=== PATIENT | female | born 1950 | race Caucasian/White ===

== ENCOUNTER 2019-03-26 11:55 | Emergency (ER) | payer OTHER ==
[2019-03-26] MEDS ORDERED: TOBRAMYCIN 0.3% 5ML OPTH DROPS OPTH ONE (13:00)
--- NOTE | 2019-03-26 13:42 | RAD REPORT ---
EXAM DESCRIPTION: RAD - Chest Pa And Lat (2 Views) - 03/26/2019 1:35 pm CLINICAL HISTORY: COUGH Chest pain. COMPARISON: No comparisons FINDINGS: The lungs are clear. The heart is normal in size. No displaced fractures. IMPRESSION: No acute or concerning finding suspected.
--- NOTE | 2019-03-26 13:49 | EDPHYS ---
Physician Documentation [facility] Name: Kenna Garay Age: 68 yrs Sex: Female : 1950 Arrival Date: 03/26/2019 Time: 11:58 Bed 25 Private MD: John Guzman ED Physician Charli Alvarenga HPI: 03/26 13:24 This 68 yrs old Female presents to ER via Ambulatory with complaints of snw Drainage From Eye, Cough, Congestion. 13:25 The patient or guardian reports airway noise, cough, described as moderate. Onset: The snw symptoms/episode began/occurred suddenly, 3 day(s) ago. Severity of symptoms: At their worst the symptoms were moderate. Associated signs and symptoms: Pertinent positives: productive cough, green dc from bilateral eyes, congestion. It is unknown whether or not the patient has had similar symptoms in the past. It is unknown whether or not the patient has recently seen a physician. 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 Historical: - Allergies: 12:10 Stadol; aa5 12:10 ephedrine sulfate; aa5 - PMHx: 12:10 Hypertension; eye problems; aa5 - PSHx: 12:10 Hysterectomy; aa5 - Immunization history:: Flu vaccine is not up to date. - Social history:: Smoking status: Patient/guardian denies using tobacco. - Ebola Screening: : No symptoms or risks identified at this time. ROS: 13:21 Constitutional: Negative for fever, chills, and weight loss, ENT: Negative for injury, snw pain, and discharge, Neck: Negative for injury, pain, and swelling, Cardiovascular: Negative for chest pain, palpitations, and edema, Abdomen/GI: Negative for abdominal pain, nausea, vomiting, diarrhea, and constipation, Back: Negative for injury and pain, : Negative for injury, bleeding, discharge, and swelling, MS/Extremity: Negative for injury and deformity, Skin: Negative for injury, rash, and discoloration, Neuro: Negative for headache, weakness, numbness, tingling, and seizure, Psych: Negative for depression, anxiety, suicide ideation, homicidal ideation, and hallucinations. 13:21 Eyes: Positive for discharge, itching, matting, redness, to both eyes - left greater snw than right - matting with green dc x 3 days. 13:21 Respiratory: Positive for cough, with green sputum. Exam: 13:21 Constitutional: This is a well developed, well nourished patient who is awake, alert, snw and in no acute distress. Head/Face: Normocephalic, atraumatic. ENT: Nares patent. No nasal discharge, no septal abnormalities noted. Tympanic membranes are normal and external auditory canals are clear. Oropharynx with no redness, swelling, or masses, exudates, or evidence of obstruction, uvula midline. Mucous membranes moist. Neck: Trachea midline, no thyromegaly or masses palpated, and no cervical lymphadenopathy. Supple, full range of motion without nuchal rigidity, or vertebral point tenderness. No Meningismus. Chest/axilla: Normal chest wall appearance and motion. Nontender with no deformity. No lesions are appreciated. Cardiovascular: Regular rate and rhythm with a normal S1 and S2. No gallops, murmurs, or rubs. Normal PMI, no JVD. No pulse deficits. Abdomen/GI: Soft, non-tender, with normal bowel sounds. No distension or tympany. No guarding or rebound. No evidence of tenderness throughout. Back: No spinal tenderness. No costovertebral tenderness. Full range of motion. Skin: Warm, dry with normal turgor. Normal color with no rashes, no lesions, and no evidence of cellulitis. MS/ Extremity: Pulses equal, no cyanosis. Neurovascular intact. Full, normal range of motion. Neuro: Awake and alert, GCS 15, oriented to person, place, time, and situation. Cranial nerves II-XII grossly intact. Motor strength 5/5 in all extremities. Sensory grossly intact. Cerebellar exam normal. Normal gait. Psych: Awake, alert, with orientation to person, place and time. Behavior, mood, and affect are within normal limits. 13:21 Respiratory: the patient does not display signs of respiratory distress, Respirations: normal, Breath sounds: are clear throughout, bronchitic cough. 13:21 Eyes: Periorbital structures: appear normal, Pupils: no acute changes, Extraocular snw movements: no acute changes, Conjunctiva: injected, bilaterally, left worse than right, Sclera: no appreciated abnormality, no changes in eye palpable pressure. Vital Signs: 12:11 BP 149 / 66; Pulse 66; Resp 16 S; Temp 97.6(TE); Pulse Ox 100% on R/A; Weight 58.06 kg aa5 (R); Height 5 ft. 2 in. (157.48 cm) (R); Pain 4/10; 12:52 BP 146 / 71; Pulse 63; Resp 17 S; Pulse Ox 97% on R/A; ca1 14:04 BP 147 / 65; Pulse 65; Resp 17 S; Pulse Ox 100% ; ca1 12:11 Body Mass Index 23.41 (58.06 kg, 157.48 cm) aa5 MDM: 12:36 Patient medically screened. snw 13:51 Data reviewed: vital signs, nurses notes. Data interpreted: Pulse oximetry: on room air snw is 97 %. Interpretation: normal. Counseling: I had a detailed discussion with the patient and/or guardian regarding: the historical points, exam findings, and any diagnostic results supporting the discharge/admit diagnosis, the presence of at least one elevated blood pressure reading (>120/80) during this emergency department visit, radiology results, the need for outpatient follow up, to return to the emergency department if symptoms worsen or persist or if there are any questions or concerns that arise at home. Special discussion: Based on the history and exam findings, there is no indication for further emergent testing or inpatient evaluation. I discussed with the patient/guardian the need to see the opthamologist for further evaluation of the symptoms, I discussed with the patient/guardian the need to see the primary care provider for further evaluation of the symptoms. 03/26 12:52 Order name: Chest Pa And Lat (2 Views) XRAY; Complete Time: 13:46 snw Administered Medications: 13:20 Drug: ToBREx Drops (0.3 %) 1 drops Route: Ophthalmic; Site: both eyes; ca1 13:52 Drug: Zithromax 500 mg Route: PO; ca1 14:04 Follow up: Response: Medication administered at discharge. ca1 Disposition: 03/27 07:37 Co-signature as Attending Physician, Charli Alvarenga MD I agree with the assessment and [facility] plan of care. Disposition: 03/26/19 13:48 Discharged to Home. Impression: Conjunctivitis, Bronchitis, not specified as acute or chronic. - Condition is Stable. - Discharge Instructions: Acute Bronchitis, Adult, Cool Mist Vaporizer, Cough, Adult, Rehydration, Elderly. - Prescriptions for Vigamox 0.5 % Ophthalmic Drops - instill 1 drop by OPHTHALMIC route every 8 hours for 7 days; 5 milliliter. Tessalon Perles 100 mg Oral Capsule - take 1 capsule by ORAL route every 8 hours As needed; 15 capsule. Zithromax 500 mg Oral Tablet - take 1 tablet by ORAL route once daily for 5 days; 5 tablet. - Medication Reconciliation Form, Thank You Letter, Antibiotic Education, Prescription Opioid Use form. - Follow up: John Guzman MD; When: 1 week; Reason: Recheck today's complaints, Continuance of care, Re-evaluation by your physician. Follow up: Emergency Department; When: As needed; Reason: Worsening of condition. Signatures: Dispatcher [employer] EDMS Charli Alvarenga MD MD cha Therrien, Shelly, INVENTORY AUDIT CLERK-C INVENTORY AUDIT CLERK-Csnw Blanca Redmond RN RN aa5 Rozina Nieves RN RN ca1 Corrections: (The following items were deleted from the chart) 03/26 13:22 13:21 Constitutional: This is a well developed, well nourished patient who is awake, snw alert, and in no acute distress. Head/Face: Normocephalic, atraumatic. ENT: Nares patent. No nasal discharge, no septal abnormalities noted. Tympanic membranes are normal and external auditory canals are clear. Oropharynx with no redness, swelling, or masses, exudates, or evidence of obstruction, uvula midline. Mucous membranes moist. Neck: Trachea midline, no thyromegaly or masses palpated, and no cervical lymphadenopathy. Supple, full range of motion without nuchal rigidity, or vertebral point tenderness. No Meningismus. Chest/axilla: Normal chest wall appearance and motion. Nontender with no deformity. No lesions are appreciated. Cardiovascular: Regular rate and rhythm with a normal S1 and S2. No gallops, murmurs, or rubs. Normal PMI, no JVD. No pulse deficits. Abdomen/GI: Soft, non-tender, with normal bowel sounds. No distension or tympany. No guarding or rebound. No evidence of tenderness throughout. Back: No spinal tenderness. No costovertebral tenderness. Full range of motion. Skin: Warm, dry with normal turgor. Normal color with no rashes, no lesions, and no evidence of cellulitis. MS/ Extremity: Pulses equal, no cyanosis. Neurovascular intact. Full, normal range of motion. Neuro: Awake and alert, GCS 15, oriented to person, place, time, and situation. Cranial nerves II-XII grossly intact. Motor strength 5/5 in all extremities. Sensory grossly intact. Cerebellar exam normal. Normal gait. Psych: Awake, alert, with orientation to person, place and time. Behavior, mood, and affect are within normal limits. snw 13:24 13:21 Constitutional: Negative for fever, chills, and weight loss, snw snw 14:05 13:48 03/26/2019 13:48 Discharged to Home. Impression: Conjunctivitis; Bronchitis, not ca1 specified as acute or chronic. Condition is Stable. Forms are Medication Reconciliation Form, Thank You Letter, Antibiotic Education, Prescription Opioid Use. Follow up: John Guzman; When: 1 week; Reason: Recheck today's complaints, Continuance of care, Re-evaluation by your physician. Follow up: Emergency Department; When: As needed; Reason: Worsening of condition. snw
--- NOTE | 2019-03-26 13:49 | ER ---
Nurse's Notes [facility] Name: Kenna Garay Age: 68 yrs Sex: Female : 1950 Arrival Date: 03/26/2019 Time: 11:58 Bed 25 Private MD: John Guzman Diagnosis: Conjunctivitis;Bronchitis, not specified as acute or chronic Presentation: 03/26 12:06 Presenting complaint: Patient states: productive cough that began 5 days ago.Pt states aa5 "For the last 2 days in the mornings my eyes are closed shut with that green drainage". Pt also reports chest congestion. Transition of care: patient was not received from another setting of care. Onset of symptoms was March 2019. Risk Assessment: Do you want to hurt yourself or someone else? Patient reports no desire to harm self or others. Initial Sepsis Screen: Does the patient meet any 2 criteria? No. Patient's initial sepsis screen is negative. Does the patient have a suspected source of infection? No. Patient's initial sepsis screen is negative. Care prior to arrival: None. 12:06 Acuity: SO 3 aa5 12:06 Method Of Arrival: Ambulatory aa5 Historical: - Allergies: 12:10 Stadol; aa5 12:10 ephedrine sulfate; aa5 - PMHx: 12:10 Hypertension; eye problems; aa5 - PSHx: 12:10 Hysterectomy; aa5 - Immunization history:: Flu vaccine is not up to date. - Social history:: Smoking status: Patient/guardian denies using tobacco. - Ebola Screening: : No symptoms or risks identified at this time. Screenin:25 Abuse screen: Denies threats or abuse. Denies injuries from another. Nutritional ca1 screening: No deficits noted. Tuberculosis screening: No symptoms or risk factors identified. Fall Risk None identified. Assessment: 12:25 General: Appears in no apparent distress. comfortable, Behavior is calm, cooperative, ca1 appropriate for age. Pain: Complains of pain in left eye. Neuro: Level of Consciousness is awake, alert, obeys commands, Oriented to person, place, time, situation, Appropriate for age. Cardiovascular: Heart tones S1 S2 present Capillary refill < 3 seconds Patient's skin is warm and dry. Respiratory: Reports cough that is productive, since a week ago with greenish phlegm as reported Airway is patent Respiratory effort is even, unlabored, Respiratory pattern is regular, symmetrical, Breath sounds are clear bilaterally. GI: Abdomen is flat, non-distended, Bowel sounds present X 4 quads. Abd is soft and non tender X 4 quads. : No deficits noted. No signs and/or symptoms were reported regarding the genitourinary system. EENT: Eyes are tearing on inner aspect of conjunctiva of left eye red on L side, reports to have greenish exudate at times. Redness started 4 days ago. Derm: Skin is intact, is healthy with good turgor, Skin is pink, warm \\T\\ dry. Musculoskeletal: Circulation, motion, and sensation intact. Capillary refill < 3 seconds, Range of motion: intact in all extremities. 13:45 Reassessment: Patient appears in no apparent distress at this time. Patient and/or ca1 family updated on plan of care and expected duration. Pain level reassessed. Patient is alert, oriented x 3, equal unlabored respirations, skin warm/dry/pink. 14:04 Reassessment: Patient appears in no apparent distress at this time. Patient is alert, ca1 oriented x 3, equal unlabored respirations, skin warm/dry/pink. Vital Signs: 12:11 BP 149 / 66; Pulse 66; Resp 16 S; Temp 97.6(TE); Pulse Ox 100% on R/A; Weight 58.06 kg aa5 (R); Height 5 ft. 2 in. (157.48 cm) (R); Pain 4/10; 12:52 BP 146 / 71; Pulse 63; Resp 17 S; Pulse Ox 97% on R/A; ca1 14:04 BP 147 / 65; Pulse 65; Resp 17 S; Pulse Ox 100% ; ca1 12:11 Body Mass Index 23.41 (58.06 kg, 157.48 cm) aa5 ED Course: 11:58 Patient arrived in ED. as 11:58 John Guzman MD is Private Physician. as 12:06 Arm band placed on. aa5 12:08 Triage completed. aa5 12:19 [facility]C [facility]. snw 12:19 Charli Alvarenga MD is Attending Physician. snw 12:25 Rozina Nieves RN is Primary Nurse. ca1 12:25 Patient has correct armband on for positive identification. Placed in gown. Bed in low ca1 position. Call light in reach. Side rails up X 1. Pulse ox on. NIBP on. Warm blanket given. 12:25 No provider procedures requiring assistance completed. ca1 13:35 Chest Pa And Lat (2 Views) XRAY In Process Unspecified. EDMS 13:48 John Guzman MD is Referral Physician. snw 14:04 Patient did not have IV access during this emergency room visit. ca1 Administered Medications: 13:20 Drug: ToBREx Drops (0.3 %) 1 drops Route: Ophthalmic; Site: both eyes; ca1 13:52 Drug: Zithromax 500 mg Route: PO; ca1 14:04 Follow up: Response: Medication administered at discharge. ca1 Outcome: 13:48 Discharge ordered by . snw 14:04 Discharged to home ambulatory. ca1 14:04 Condition: stable 14:04 Discharge instructions given to patient, Instructed on discharge instructions, follow up and referral plans. medication usage, Demonstrated understanding of instructions, follow-up care, medications, Prescriptions given X 3. 14:05 Patient left the ED. ca1 Signatures: Dispatcher [employer] EDMS Mckayla Sanchez, STORAGE ADMINISTRATOR-C STORAGE ADMINISTRATOR-Rhonda Moser Audri, RN RN aa5 Rozina Nieves RN RN ca1
[2019-03-26] MEDS ORDERED: AZITHROMYCIN 250 MG TAB ONE (13:54)
[2019-03-26 14:20] VITALS: TEMP 97.6
[2019-03-26 14:22] VITALS: BP 147/65; O2SAT 100
== END 2019-03-26 14:05 | disposition home or self-care (01) ==
LOC: ER 11:55
DX: J40 Bronchitis, not specified as acute or chronic (principal); H10.9 Unspecified conjunctivitis; Z88.8 Allergy status to other drugs, medicaments and biological substances
CPT/HCPCS: 71046; 99284

== ENCOUNTER 2020-02-01 09:51 | Emergency (ER) | payer OTHER ==
[2020-02-01] MEDS ORDERED: NA CHLORIDE 0.9% 100 ML IV ONE (10:45)
[2020-02-01] MEDS ORDERED: NA CHLORIDE 0.9% 1,000 ML ONE (10:45)
[2020-02-01] MEDS ORDERED: MECLIZINE HCL 12.5 MG TAB ONE (10:45)
[2020-02-01] MEDS ORDERED: METOCLOPRAMIDE 10 MG/2mL INJ ONE (10:45)
--- NOTE | 2020-02-01 11:12 | RAD REPORT ---
EXAM DESCRIPTION: CT - Head Brain Wo Cont - 02/01/2020 10:48 am CLINICAL HISTORY: Headache COMPARISON: None TECHNIQUE: Computed axial tomography of the head was obtained. IV contrast was not requested. All CT scans are performed using dose optimization technique as appropriate and may include automated exposure control or mA/KV adjustment according to patient size. FINDINGS: 4 centimeter low-density areas present within the left cerebellum. Evaluation is somewhat limited secondary to beam hardening artifact Punctate low-density area within the right internal capsular may indicate an old lacunar infarct The ventricles are normal in caliber. No extra-axial fluid collection is noted. Fluid within the sinuses/ mastoids is not seen. IMPRESSION: 4 centimeter low-density area left cerebellum may indicate an acute/subacute infarction. A lesion with underlying vasogenic edema probably less likely. It is recommended that the patient bridges ve a MRI of the brain with IV contrast for further evaluation
--- NOTE | 2020-02-01 11:47 | ER ---
Nurse's Notes [facility] Name: Kenna Garay Age: 69 yrs Sex: Female : 1950 Arrival Date: 02/01/2020 Time: 09:53 Bed 15 Private MD: John Guzman Diagnosis: Vertigo of central origin Presentation: 01/31 09:58 Chief complaint: Dizziness x 3 days, headache and N/V x 2 days. Not tolerating fluids. hb Coronavirus screen: At this time, the client does not indicate any symptoms associated with coronavirus-19. Ebola Screen: No symptoms or risks identified at this time. Initial Sepsis Screen: Does the patient meet any 2 criteria? No. Patient's initial sepsis screen is negative. Does the patient have a suspected source of infection? No. Patient's initial sepsis screen is negative. Risk Assessment: Do you want to hurt yourself or someone else? Patient reports no desire to harm self or others. Onset of symptoms was January 30, 2020. 09:58 Method Of Arrival: Wheelchair hb 09:58 Acuity: SO 3 hb Historical: - Allergies: 09:59 Ephedrine Sulfate; hb 09:59 Stadol; hb - PMHx: 09:59 eye problems; Hypertension; hb - PSHx: 09:59 Hysterectomy; hb - Immunization history:: Adult Immunizations up to date. - Social history:: Smoking status: Patient denies any tobacco usage or history of. Patient/guardian denies using alcohol, street drugs, The patient lives with family. - Family history:: not pertinent. Screenin:00 Abuse screen: Denies threats or abuse. Denies injuries from another. Nutritional hb screening: No deficits noted. Tuberculosis screening: No symptoms or risk factors identified. Fall Risk None identified. 11:42 Patient has been NPO before screening. The patient is alert, able to follow commands. sv The patient does not exhibit slurred or garbled speech The patient is not exhibiting difficulty speaking. The patient does not exhibit difficulty understanding words. The patient is able to swallow own secretions with no drooling or need for suction. Patient tolerated one teaspoon of water. No drooling, immediate coughing, gurgling, or clearing of the throat was noted. The patient tolerated 90mL of water. No drooling, immediate coughing, gurgling, or clearing of the throat was noted. The patient passed the bedside swallow screening. Oral medications may be given as ordered. Contact Physician for further diet orders. Provider notified of bedside swallow screening results: Kori Deleon MD. Assessment: 10:00 Reassessment: Brock [phone]. hb 11:00 General: Appears in no apparent distress. uncomfortable, well developed, Behavior is sv calm, cooperative, appropriate for age. Pain: Denies pain. Neuro: Level of Consciousness is awake, alert, obeys commands, Oriented to person, place, time, situation, Promotions Assistant are equal bilaterally Moves all extremities. Full function Gait is unsteady, Speech is normal, Facial symmetry appears normal, Facial symmetry: tongue is midline, Intact Reports dizziness, since 3 days ago photophobia Denies numbness headache. Cardiovascular: Patient's skin is warm and dry. Respiratory: Airway is patent Respiratory effort is even, unlabored, Respiratory pattern is regular, symmetrical. GI: Abdomen is flat, Reports nausea. Derm: Skin is intact, Skin is pink, warm \T\ dry. Musculoskeletal: Range of motion: intact in all extremities. 11:46 Reassessment: Patient appears in no apparent distress at this time. Patient and/or sv family updated on plan of care and expected duration. Pain level reassessed. Patient is alert, oriented x 3, equal unlabored respirations, skin warm/dry/pink. Patient states symptoms have improved. GI: Patient currently denies nausea. 13:25 Reassessment: REPORT CALLED TO BASILIO SCHMITT RN [facility]. MARIA M NOTIFIED OF ls4 TRANSFER PENDING. CONSENT SIGNED BY TIME. PT ASSISTED TO BATHROOM. Vital Signs: 09:58 BP 147 / 87; Pulse 64; Resp 16; Temp 97.8; Pulse Ox 100% on R/A; Weight 65.77 kg; hb Height 5 ft. 1 in. (154.94 cm); Pain 2/10; 11:15 BP 129 / 58; Pulse 73; Resp 16; Pulse Ox 100% ; sv 13:32 BP 143 / 71; Pulse 72; Resp 16; Temp 97.9(O); Pulse Ox 100% on R/A; Pain 0/10; ls4 09:58 Body Mass Index 27.40 (65.77 kg, 154.94 cm) hb ED Course: 09:53 Patient arrived in ED. mr 09:53 John Guzman MD is Private Physician. mr 09:59 Triage completed. hb 09:59 Arm band placed on. hb 10:00 Janet Tadeo RN is Primary Nurse. sv 10:00 Pulse ox on. NIBP on. sv 10:12 Kori Deleon MD is Attending Physician. ma2 10:13 Patient has correct armband on for positive identification. sv 10:49 Head Brain Wo Cont CT In Process Unspecified. EDMS 10:49 CT completed. Patient tolerated procedure well. Patient moved back from CT. bq 11:00 Inserted saline lock: 20 gauge in left wrist, using aseptic technique. Blood collected. sv Flushed left with 5 ml normal saline. 11:53 initiated a transfer with Cait from the [facility] Transfer [place]. eb 12:00 Report given to Unique MOTLEY. sv 12:09 connected the neurologist identification technician for [facility] with Dr. Deleon for patient [facility] transfer consultation. 12:[address] Aguiar the hospitalist identification technician for [facility] with Dr. Deleon [place] [id number] patient transfer consultation. 12:46 administrative approval given by Radha Kwok Rn/ patient has been accepted to [address]/ Dr. Aguiar has accepted the patient in transfer/ report to be called to [phone]. 13:32 No provider procedures requiring assistance completed. ls4 14:24 Patient transferred, IV remains in place. intact. ls4 18:47 Primary Nurse role handed off by Janet Tadeo RN sv Administered Medications: 11:06 Drug: NS 0.9% 1000 ml Route: IV; Rate: 1 bolus; Site: left wrist; sv 13:33 Follow up: IV Status: Completed infusion; IV Intake: 1000ml ls4 11:06 Drug: Reglan 20 mg Route: IVP; Site: left wrist; sv 11:46 Follow up: Response: No adverse reaction; Nausea is decreased sv 13:33 Follow up: Response: No adverse reaction; No change in condition ls4 11:46 Drug: Meclizine 50 mg Route: PO; sv 13:33 Follow up: Response: No adverse reaction; No change in condition ls4 14:10 Drug: Aspirin Chewable Tablet 324 mg Route: PO; ls4 14:23 Follow up: Response: No adverse reaction; Marked relief of symptoms ls4 Intake: 13:33 IV: 1000ml; Total: 1000ml. ls4 Outcome: 11:47 ER care complete, transfer ordered by . ma2 14:24 Transferred by ground EMS to [facility], Transfer form completed. ls4 X-rays sent w/ patient. Note: report to [facility] 14:24 Condition: stable 14:24 Discharge instructions given to patient, family, Instructed on the need for transfer. 14:24 Patient left the ED. ls4 Signatures: Dispatcher [employer] Janet Domingo, Magali Cosby RNkerrieWinifred Heather, RN RN Noah, Lay [facility] Kori Deleon MD MD nd2 Denise Tsang Lisa, RN RN ls4 Corrections: (The following items were deleted from the chart) 13:33 13:32 Response: No adverse reaction ls4 ls4
--- NOTE | 2020-02-01 11:48 | EDPHYS ---
Physician Documentation [facility] Name: Kenna Garay Age: 69 yrs Sex: Female : 1950 Arrival Date: 02/01/2020 Time: 09:53 Bed 15 Private MD: John Guzman ED Physician Kori Deleon HPI: 01/31 11:06 This 69 yrs old Female presents to ER via Wheelchair with complaints of ma2 Dizziness, Nausea. 11:06 The patient presents with vertigo. Onset: The symptoms/episode began/occurred suddenly, ma2 2 day(s) ago. Context: occurred at home. Associated signs and symptoms: Pertinent negatives: agitation, blurred vision, confusion, , shortness of breath. Severity of symptoms: At their worst the symptoms were moderate in the emergency department the symptoms are unchanged. The patient has experienced similar episodes in the past. Historical: - Allergies: 09:59 Ephedrine Sulfate; hb 09:59 Stadol; hb - PMHx: 09:59 eye problems; Hypertension; hb - PSHx: 09:59 Hysterectomy; hb - Immunization history:: Adult Immunizations up to date. - Social history:: Smoking status: Patient denies any tobacco usage or history of. Patient/guardian denies using alcohol, street drugs, The patient lives with family. - Family history:: not pertinent. ROS: 11:06 Constitutional: Negative for fever, chills, and weight loss. ma2 11:06 All other systems are negative. Exam: 11:06 Constitutional: This is a well developed, well nourished patient who is awake, alert, ma2 and in no acute distress. Chest/axilla: Normal chest wall appearance and motion. Nontender with no deformity. No lesions are appreciated. Cardiovascular: Regular rate and rhythm with a normal S1 and S2. No gallops, murmurs, or rubs. Normal PMI, no JVD. No pulse deficits. Respiratory: Lungs have equal breath sounds bilaterally, clear to auscultation and percussion. No rales, rhonchi or wheezes noted. No increased work of breathing, no retractions or nasal flaring. Abdomen/GI: Soft, non-tender, with normal bowel sounds. No distension or tympany. No guarding or rebound. No evidence of tenderness throughout. Back: No spinal tenderness. No costovertebral tenderness. Full range of motion. Skin: Warm, dry with normal turgor. Normal color with no rashes, no lesions, and no evidence of cellulitis. MS/ Extremity: Pulses equal, no cyanosis. Neurovascular intact. Full, normal range of motion. Neuro: Awake and alert, GCS 15, oriented to person, place, time, and situation. Cranial nerves II-XII grossly intact. Motor strength 5/5 in all extremities. Sensory grossly intact. Cerebellar exam normal. Normal gait. Vital Signs: 09:58 BP 147 / 87; Pulse 64; Resp 16; Temp 97.8; Pulse Ox 100% on R/A; Weight 65.77 kg; hb Height 5 ft. 1 in. (154.94 cm); Pain 2/10; 11:15 BP 129 / 58; Pulse 73; Resp 16; Pulse Ox 100% ; sv 13:32 BP 143 / 71; Pulse 72; Resp 16; Temp 97.9(O); Pulse Ox 100% on R/A; Pain 0/10; ls4 09:58 Body Mass Index 27.40 (65.77 kg, 154.94 cm) hb MDM: 10:12 Patient medically screened. wv2 11:06 Differential diagnosis: generalized weakness, hyperventilation, hypovolemia, vertigo. [facility] 11:45 Data reviewed: vital signs, nurses notes. Counseling: I had a detailed discussion with ma2 the patient and/or guardian regarding: the historical points, exam findings, and any diagnostic results supporting the discharge/admit diagnosis, the presence of at least one elevated blood pressure reading (>120/80) during this emergency department visit, the need for outpatient follow up. Response to treatment: the patient's symptoms have markedly improved after treatment. ED course: although symptoms improved, she stillhave vertigo, vertigo started yesterday, ct shows hypodensity in the cerebellum, she will need neuro evaluation and possible mri, no neurology available in our er, she will need transfer for higher level of care . 12:11 ED course: accepted by [facility] 01/31 10:30 Order name: CBC with Diff; Complete Time: 12: [facility] 01/31 10:30 Order name: CMP; Complete Time: 12: [facility] 01/31 10:30 Order name: Head Brain Wo Cont CT; Complete Time: 11:33 wv2 01/31 10:30 Order name: Protime (+inr); Complete Time: 12:09 [facility] 01/31 10:30 Order name: Ptt, Activated; Complete Time: 12:09 [facility] 01/31 12:12 Order name: Urine Dipstick--Ancillary (enter results); Complete Time: 12:33 [facility] 01/31 10:30 Order name: Urine Dipstick-Ancillary (obtain specimen); Complete Time: 11:36 wv2 Administered Medications: 11:06 Drug: NS 0.9% 1000 ml Route: IV; Rate: 1 bolus; Site: left wrist; sv 13:33 Follow up: IV Status: Completed infusion; IV Intake: 1000ml ls4 11:06 Drug: Reglan 20 mg Route: IVP; Site: left wrist; sv 11:46 Follow up: Response: No adverse reaction; Nausea is decreased sv 13:33 Follow up: Response: No adverse reaction; No change in condition ls4 11:46 Drug: Meclizine 50 mg Route: PO; sv 13:33 Follow up: Response: No adverse reaction; No change in condition ls4 14:10 Drug: Aspirin Chewable Tablet 324 mg Route: PO; ls4 14:23 Follow up: Response: No adverse reaction; Marked relief of symptoms ls4 Disposition: 02/01/20 11:[address] [facility]. Diagnosis is Vertigo of central origin. - Reason for transfer: Higher level of care. - Accepting physician is osh. - Condition is Stable. - Problem is new. - Symptoms are unchanged. Signatures: Dispatcher [employer] Janet Domingo RN RN Tammy Saeed RN RN hb Alzahri, Mohammad, MD MD wv2 Unique Doyle RN RN ls4 Corrections: (The following items were deleted from the chart) 14:24 11:47 02/01/2020 11:[address] [facility]. ls4 Diagnosis is Vertigo of central origin. Reason for transfer: Higher level of care. Accepting physician is osh. Condition is Stable. Problem is new. Symptoms are unchanged. ma2
[2020-02-01 11:53] LABS: Absolute Lymphocytes (CBC) 1.2 K/uL (0.7-4.9); Basophils % 0.8 % (0-1.3); Hematocrit 43.8 % (36.0-45.0); Lymphocytes % 15.7 % (15.3-44.8); MPV 9.3 fL (7.6-11.3); RBC Red Blood Cell Count 4.95 M/uL (3.86-4.86)
[2020-02-01 11:54] LABS: Protime INR 0.91
[2020-02-01 11:56] LABS: Albumin 3.2 g/dL (3.4-5.0); Bilirubin Total 0.3 mg/dL (0.2-1.0); Potassium 4.1 mmol/L (3.5-5.1); Protein, Total 7.7 g/dL (6.4-8.2)
[2020-02-01 12:19] LABS: Urine Blood TRACE (NEG); Urine Glucose NEGATIVE (NEG); Urine Protein 2+ (NEG); Urine Specific Gravity 1.015 (1.005-1.030); Urine pH 8.5 (5.0-7.0)
[2020-02-01] MEDS ORDERED: ASPIRIN 81 MG CHEWABLE TABLET ONE (14:25)
[2020-02-01 14:33] VITALS: O2SAT 100
[2020-02-01 14:36] VITALS: BP 143/71; TEMP 97.9
== END 2020-02-01 14:24 | disposition short-term general hospital (02) ==
LOC: ER 09:51
DX: H81.4 Vertigo of central origin (principal); I10 Essential (primary) hypertension; Z88.5 Allergy status to narcotic agent; Z88.8 Allergy status to other drugs, medicaments and biological substances
CPT/HCPCS: 85025; 36415; 85610; 85730; 81003; 80053; 70450; J2765; J7030; 96361; 96374; 99285; J8597

== ENCOUNTER 2020-04-13 16:50 | Emergency (ER) | payer OTHER ==
--- OUTSIDE RECORDS SUMMARY | 2020-04-13 16:52 | XMS REPORT | Clinical Summary ---
:1950 Author Organization [facility] Address [address] [place] [address] Care Team Providers Name Role Phone Unavailable Primary Care Provider Unavailable Allergies Active Allergy Reactions Severity Noted Date Comments Butorphanol Tartrate 02/01/2020 Medications Medication Sig Dispensed Refills Start Date End Date Status acetaminophen Take 2 tablets 30 tablet 0 02/04/2020 Active (TYLENOL) 325 MG (650 mg total) 1 tablet by mouth every 6 (six) hours as needed for up to 360 days. amLODIPine (NORVASC) Take 1 tablet 30 tablet 0 02/05/202001/17 Active 10 MG tablet (10 mg total) 1 by mouth daily. clopidogreL (PLAVIX) Take 1 tablet 30 tablet 0 02/05/202001/17 Active 75 mg tablet (75 mg total) 1 by mouth daily. lisinopriL Take 1 tablet 30 tablet 0 02/05/2020 Acti ve (PRINIVIL,ZESTRIL) (20 mg total) 1 20 MG tablet by mouth daily. levothyroxine Take 1 tablet 30 tablet 0 02/05/2020 A ctive (SYNTHROID, (100 mcg 1 LEVOTHROID) 100 MCG total) by tablet mouth Every morning on an empty stomach. timolol (TIMOPTIC) Place 1 drop 10 mL 0 02/04/2020 02 Active 0.5 % ophthalmic into both eyes 1 solution 2 (two) times daily. cloNIDine HCL Take 1 tablet 60 tablet 0 02/04/2020 A ctive (CATAPRES) 0.1 MG (0.1 mg total) 1 tablet by mouth 2 (two) times daily. atorvastatin Take 8 tablets 30 tablet 0 02/04/2020 A ctive (LIPITOR) 10 MG (80 mg total) 1 tablet by mouth nightly. atorvastatin Take 1 tablet 30 tablet 0 02/04/2020 Di scontinued (LIPITOR) 10 MG (10 mg total) 0 tablet by mouth nightly. meclizine (ANTIVERT) Take 1 tablet 30 tablet 0 02/04/202001/17 25 mg tablet (25 mg total) 0 by mouth 3 (three) times daily as needed for Dizziness for up to 10 days. metoclopramide Take 1 tablet 30 tablet 0 02/04/2020 (REGLAN) 10 MG (10 mg total) 0 tablet by mouth 3 (three) times daily before meals for 10 days. mINOCYCLine Take 1 capsule 10 capsule 0 02/04/2020 E xpired (MINOCIN,DYNACIN) (100 mg total) 0 100 MG capsule by mouth every 12 (twelve) hours for 5 days. 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, left (HCC) 02/01/2020 Travel after 04/13/2019 Social History Tobacco Use Types Packs/Day Years Used Date Former Smoker Cigarettes 02/02/1988 - 0 02/01/1989 Sex Assigned at Date Recorded Not on file Last Filed Vital Signs Vital Sign Reading Time Taken Comments Blood Pressure 185/86 02/04/2020 3:03 PM CDT Pulse 80 02/04/2020 3:03 PM CDT Temperature 36.3 C (97.4 F) 02/04/2020 11:00 AM CDT Respiratory Rate 16 02/04/2020 3:03 PM CDT Oxygen Saturation 97% 02/04/2020 11:00 AM CDT Inhaled Oxygen Concentration - - Weight 65.8 kg (145 lb) 02/01/2020 4:56 PM CDT Height 157.5 cm (5' 2") 02/01/2020 4:56 PM CDT Body Mass Index 26.52 02/01/2020 4:56 PM CDT Plan of Treatment Health Maintenance Due Date Last Done Comments BREAST CANCER SCREENING 1950 COLON CANCER SCREENING COLONOSCOPY 1950 PNEUMOCOCCAL 65+ YRS (1 of 1 - [id number]) 2013 MEDICARE ANNUAL WELLNESS (YEAR 2 or FIRST YEAR if no 06/19/2019 IPPE) INFLUENZA VACCINE (#1) 2020 Procedures Procedure Name Priority Date/Time Associated Diagnosis Comme nts RHYTHM STRIP - SCAN 02/05/2020 1:40 PM CDT ECG 12-LEAD Routine 02/03/2020 4:51 PM CDT Procedure Note - Interface, External Ris In - 02/03/2020 5:12 PM CDT Ventricular Rate 77 BPM Atrial Rate 77 BPM P-R Interval 144 ms QRS Duration 82 ms Q-T Interval 394 ms QTC Calculation(Bazett) 445 ms P [place] 66 degrees R [place] -12 degrees T [place] 49 degrees Normal sinus rhythm ST abnormality, possible dig italis effect Abnormal ECG No previous ECGs available ECG 12-LEAD Routine 02/03/2020 4:51 PM CDT Resu lts for this procedure are i n the results section . MRA HEAD WITH & WITHOUT IV Routine 02/03/2020 9:44 AM CDT Results for this CONTRAST procedure are i n the results section . MR BRAIN WITH & WITHOUT IV Routine 02/03/2020 9:44 AM CDT Results for this CONTRAST procedure are i n the results section . BASIC METABOLIC PANEL (7) Routine 02/03/2020 5:31 AM CDT Results for this procedure are i n the results section . 2D ECHO W/ DOPPLER Routine 02/02/2020 3:08 PM CDT Results for this (CW/PW/COLOR) procedure are in the results section . CBC W/PLT COUNT & AUTO Routine 02/01/2020 7:06 PM CDT Results for this DIFFERENTIAL procedure are i n the results section . FOLATE, SERUM Routine 02/01/2020 7:06 PM CDT Res ults for this procedure are i n the results section . VITAMIN B12 Routine 02/01/2020 7:06 PM CDT Resu lts for this procedure are i n the results section . TSH/FREE T4 IF INDICATED Routine 02/01/2020 7:06 PM CDT Results for this procedure are i n the results section . LIPID PANEL Routine 02/01/2020 7:06 PM CDT Resu lts for this procedure are i n the results section . HEMOGLOBIN A1C Routine 02/01/2020 7:06 PM CDT Re sults for this procedure are i n the results section . PHOSPHORUS Routine 02/01/2020 7:06 PM CDT Resu lts for this procedure are i n the results section . MAGNESIUM Routine 02/01/2020 7:06 PM CDT Resu lts for this procedure are i n the results section . BASIC METABOLIC PANEL (7) Routine 02/01/2020 7:06 PM CDT Results for this procedure are i n the results section . CBC W/PLT COUNT & AUTO Routine 02/01/2020 7:06 PM CDT Results for this DIFFERENTIAL procedure are i n the results section . after 04/13/2019 Results RHYTHM STRIP - SCAN (02/05/2020 1:40 PM CDT) Narrative Performed At This result has an attachment that is no t available. ECG 12 lead (02/03/2020 4:51 PM CDT) Specimen Narrative Performed At Ventricular Rate 77 BPM GE MUSE Atrial Rate 77 BPM P-R Interval 144 ms QRS Duration 82 ms Q-T Interval 394 ms QTC Calculation(Bazett) 445 ms P [place] 66 degrees R [place] -12 degrees T [place] 49 degrees Normal sinus rhythm Nonspecific ST abnormality Abnormal ECG No previous ECGs available Confirmed by MD PINEDA YOCHAI ([id number]) on 02/03/2020 6:51:21 PM Procedure Note Interface, External Ris In - 02/03/2020 6:51 PM CDT Ventricular Rate 77 BPM Atrial Rate 77 BPM P-R Interval 144 ms QRS Duration 82 ms Q-T Interval 394 ms QTC Calculation(Bazett) 445 ms P [place] 66 degrees R [place] -12 degrees T [place] 49 degrees Normal sinus rhythm Nonspecific ST abnormality Abnormal ECG No previous ECGs available Confirmed by MD MIRIAM, EDGARDO ([id number]) on 02/03/2020 6:51:21 PM Performing Organization Address City/State/[facility] Phone Number [email or web address] MR brain without & with IV contrast (02/03/2020 9:44 AM CDT) Specimen Narrative Performed At FINAL REPORT [facility] MR, BRAIN, WITH \\T\\ WITHOUT CONTRAST, MR , MRA, BRAIN, WITH \\T\\ WITHOUT CONTRAST INDICATION: Dizziness, non-specific TECHNIQUE: Pre and post contrast, multip lanar, multisequence MR images of the brain. 3-D time of flight and postcontrast MRA of the intracranial circulation. 3D MIP angiogr aphic post-processing was performed. COMPARISON: None FINDINGS: MRI BRAIN WITHOUT AND WITH CONTRAST: Acute to early subacute infarction invol ving the left cerebellar hemisphere without susceptibility artifa ct to suggest hemorrhagic conversion. Associated edema without mas s effect or ventricular effacement. Supratentorial brain demonst rates age-appropriate morphology and volume without additional ischemic focus. Scattered, relatively mild white matter changes sug gest leukoaraiosis. There is no midline shift or supratentorial ventr icular dilation. Lacunar infarct versus neuroglial cyst affects t he left basal ganglia. No layering fluid is present in the paranas al sinuses. Orbital contents are unremarkable. Following intravenous contrast administr ation, there is no abnormal parenchymal, ependymal, or leptomeningea l enhancement. MRA Head: [place] branches are patent. Internal carotid arteries demonstrate robust flow related signal and postcontrast enhancement. Within the posterior circul ation, the vertebral arteries are codominant. However, there is no debbie w related signal or visible postcontrast enhancement associated with the left posterior inferior cerebellar artery beyond the origin. IMPRESSION: Large left cerebellar infarction without hemorrhagic conversion (posterior inferior cerebellar artery te rritory). Occlusion of the left posterior inferior cerebellar artery at its origin. Signed: JR Duarte Robert MD Report Verified Date/Time: 02/03/2020 10:00:04 Reading Location: [address] Procedure Note Interface, External Ris In - 02/03/2020 10:03 AM CDT FINAL REPORT MR, BRAIN, WITH \\T\\ WITHOUT CONTRAST, MR , MRA, BRAIN, WITH \\T\\ WITHOUT CONTRAST INDICATION: Dizziness, non-specific TECHNIQUE: Pre and post contrast, multip lanar, multisequence MR images of the brain. 3-D time of flight and postcontrast MRA of the intracranial circulation. 3D MIP angiogr aphic post-processing was performed. COMPARISON: None FINDINGS: MRI BRAIN WITHOUT AND WITH CONTRAST: Acute to early subacute infarction invol ving the left cerebellar hemisphere without susceptibility artifa ct to suggest hemorrhagic conversion. Associated edema without mas s effect or ventricular effacement. Supratentorial brain demonst rates age-appropriate morphology and volume without additional ischemic focus. Scattered, relatively mild white matter changes sug gest leukoaraiosis. There is no midline shift or supratentorial ventr icular dilation. Lacunar infarct versus neuroglial cyst affects t he left basal ganglia. No layering fluid is present in the paranas al sinuses. Orbital contents are unremarkable. Following intravenous contrast administr ation, there is no abnormal parenchymal, ependymal, or leptomeningea l enhancement. MRA Head: The major [place] branches are patent. Internal carotid arteries demonstrate robust flow related signal and postcontrast enhancement. Within the posterior circul ation, the vertebral arteries are codominant. However, there is no debbie w related signal or visible postcontrast enhancement associated with the left posterior inferior cerebellar artery beyond the origin. IMPRESSION: Large left cerebellar infarction without hemorrhagic conversion (posterior inferior cerebellar artery te rritory). Occlusion of the left posterior inferior cerebellar artery at its origin. Signed: JR Duarte Robert MD Report Verified Date/Time: 02/03/2020 1 0:00:04 Reading Location: [address] Performing Organization Address City/State/Zipcode Phone Number e-[email or web address] MRA head with and without contrast (02/03/2020 9:44 AM CDT) Specimen Narrative Performed At FINAL REPORT [facility] MR, BRAIN, WITH \\T\\ WITHOUT CONTRAST, MR , MRA, BRAIN, WITH \\T\\ WITHOUT CONTRAST INDICATION: Dizziness, non-specific TECHNIQUE: Pre and post contrast, multip lanar, multisequence MR images of the brain. 3-D time of flight and postcontrast MRA of the intracranial circulation. 3D MIP angiogr aphic post-processing was performed. COMPARISON: None FINDINGS: MRI BRAIN WITHOUT AND WITH CONTRAST: Acute to early subacute infarction invol ving the left cerebellar hemisphere without susceptibility artifa ct to suggest hemorrhagic conversion. Associated edema without mas s effect or ventricular effacement. Supratentorial brain demonst rates age-appropriate morphology and volume without additional ischemic focus. Scattered, relatively mild white matter changes sug gest leukoaraiosis. There is no midline shift or supratentorial ventr icular dilation. Lacunar infarct versus neuroglial cyst affects t he left basal ganglia. No layering fluid is present in the paranas al sinuses. Orbital contents are unremarkable. Following intravenous contrast administr ation, there is no abnormal parenchymal, ependymal, or leptomeningea l enhancement. MRA Head: The major [place] branches are patent. Internal carotid arteries demonstrate robust flow related signal and postcontrast enhancement. Within the posterior circul ation, the vertebral arteries are codominant. However, there is no debbie w related signal or visible postcontrast enhancement associated with the left posterior inferior cerebellar artery beyond the origin. IMPRESSION: Large left cerebellar infarction without hemorrhagic conversion (posterior inferior cerebellar artery te rritory). Occlusion of the left posterior inferior cerebellar artery at its origin. Signed: JR Felicia, Nava WHITING Report Verified Date/Time: 02/03/2020 10:00:04 Reading Location: [address] Procedure Note Interface, External Ris In - 02/03/2020 10:03 AM CDT FINAL REPORT MR, BRAIN, WITH \\T\\ WITHOUT CONTRAST, MR , MRA, BRAIN, WITH \\T\\ WITHOUT CONTRAST INDICATION: Dizziness, non-specific TECHNIQUE: Pre and post contrast, multip lanar, multisequence MR images of the brain. 3-D time of flight and postcontrast MRA of the intracranial circulation. 3D MIP angiogr aphic post-processing was performed. COMPARISON: None FINDINGS: MRI BRAIN WITHOUT AND WITH CONTRAST: Acute to early subacute infarction invol ving the left cerebellar hemisphere without susceptibility artifa ct to suggest hemorrhagic conversion. Associated edema without mas s effect or ventricular effacement. Supratentorial brain demonst rates age-appropriate morphology and volume without additional ischemic focus. Scattered, relatively mild white matter changes sug gest leukoaraiosis. There is no midline shift or supratentorial ventr icular dilation. Lacunar infarct versus neuroglial cyst affects t he left basal ganglia. No layering fluid is present in the paranas al sinuses. Orbital contents are unremarkable. Following intravenous contrast administr ation, there is no abnormal parenchymal, ependymal, or leptomeningea l enhancement. MRA Head: The major [place] branches are patent. Internal carotid arteries demonstrate robust flow related signal and postcontrast enhancement. Within the posterior circul ation, the vertebral arteries are codominant. However, there is no debbie w related signal or visible postcontrast enhancement associated with the left posterior inferior cerebellar artery beyond the origin. IMPRESSION: Large left cerebellar infarction without hemorrhagic conversion (posterior inferior cerebellar artery te rritory). Occlusion of the left posterior inferior cerebellar artery at its origin. Signed: JR Felicia, Nava WHITING Report Verified Date/Time: 02/03/2020 1 0:00:04 Reading Location: [address] Performing Organization Address City/State/Zipcode Phone Number GE RIS Basic Metabolic Panel (02/03/2020 5:31 AM CDT)Only the most recent of2 results within the time period is included. Sodium 137 136 - 145 meq/L [facility] Potassium 3.9 3.5 - 5.1 meq/L [facility] Chloride 102 98 - 107 meq/L [facility] CO2 25 22 - 29 meq/L [facility] BUN 8 7 - 21 mg/dL [facility] Creatinine 0.73 0.57 - 1.25 [facility] mg/dL [facility] Glucose 80 70 - 105 mg/dL [facility] Calcium 8.5 8.4 - 10.2 [facility] mg/dL [facility] EGFR 79Comment: ESTIMATED mL/min/1.73 sq [facility] GFR IS NOT m [facility] ACCURATE [place] CREATININE CLEARANCE IN PREDICTING GLOMERULAR FILTRATION RATE. ESTIMATED GFR IS NOT APPLICABLE FOR DIALYSIS PATIENTS. Specimen Blood Narrative Performed At Math Teacher ID - JEMAL SALCIDO [facility] Performing Organization Address City/State/Zipcode Phone Number [facility] [address] [place] [address] CENTER 2D Echo W/Doppler(CW/PW/Color) (02/02/2020 3:08 PM CDT) Pathologist Sig nature Ejection Fraction [facility] E[facility] Specimen Narrative Performed At Transthoracic Echocardiography Report (T TE) [facility] ECHO [facility] Demographics Patient Name GARAY, Date of Study 02/02/2020 KENNA Gender Female Visit Number [id number] Race Room Number 2238 Number Date of 1950 Referring Physician Sandhya Israel MD Age 69 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 Clinical History HGB 11.7 HCT 36.8 % HTN, HLD, CVA Contrast Medium: Bubble Study. Height: 62 inches Weight: 65.77 kg (145 lbs) BSA: 1.67 m^2 BMI: 26.52 kg/m^2 HR: 88 bpm BP: 169/74 mmHg Summary IV saline contrast injection was negative for a PFO (patent foramen ovale) at rest and post Valsalva . The left ventricle is chamber size (by vol index) is normal (female - LVED vol - 29-61ml/m2). All of the LV segments contract normally . LVEF by Chavez's method of disk assessment is normal (>60%) . Grade 1 diastolic dysfunction (impaired relaxation and low-normal LA pressure). Estimated peak systolic PA pressure is 35-40 mmHg . Signature Findings Technical Quality: Technically adequate exam. Left Ventricle The left ventricle is chamber size (by vol index) is normal (female - LVED vol - 29-61ml/m2). Normal LV wall thickness. All of the LV segments contra ct normally . LVEF by Chavez's method of disk assessment is normal (>60%) . Grade 1 diastolic dysfunction (impaired relaxation and low-normal LA pres sure). Left Atrium LA size is normal (16-34 ml/m2) . Right Ventricle The right ventricular chamber size and systolic function are within normal limits. Right Atrium RA size is normal. Atrial Septum IV saline contrast injection was negative for a PFO (patent foramen ovale) at rest and post Valsalva . Aortic Valve Mild AoV cusp thickening. There is trace aortic regurgitation. Mitral Valve Mild MV leaflet thickening. Tricuspid Valve TV structure is normal. Mild tricuspid regurgitation. Estimated peak systolic PA pressure is 35-40 mmHg . Pulmonic Valve Normal PV structure appears normal by available view s. A trace of pulmonary regurgitation. Aorta Aortic root size (SInus of Valsalva diameter) is norm al . Pericardium No pericardial effusion is visualized. IVC/SVC/PA/PV/Pleural Pulmonary vein flow is normal . The estimated RA pressure by IVC dynamics 0-5mmHg . Chambers/Structures Left Atrium LA Dimension: 3.61 cm LA Area: 17.37 cm^2 LA Volume: 44.18 ml LA Vol. Index: 26 ml/m^2 Left Ventricle LVIDd: 4.55 cm LVIDs: 3.49 cm LV Septum Diastolic: 1.12 cm LV PW Diastolic: 0.96 cm LV FS: 23.3 % LVEDV Chavez's:43.63 ml LVESV Chavez's:15.48 ml LVEDVI: 26 ml/m^2 LVEF Chavez's: 64.5 % LVESVI: 9 ml/m^2 LVOT Diameter: 1.82 cm Aorta Ao Root S of Zaina.: 3.1 cm Doppler/Quantitative Measurements LVOT Peak Velocity: 1 m/s Peak Gradient: 4.03 mmHg Mean Velocity: 0.61 m/s Mean Gradient: 1.82 mmHg LVOT Diameter: 1.82 cm LVOT VTI: 19.8 cm LVOT Area: 2.6 cm^2 LVOT SV:51.48 ml LVOT CO: 4.53 l/min LVOT CI: 2.71 l/min/m^2 Procedure Note Interface, External Ris In - 02/02/2020 5:32 PM CDT Transthoracic Echocardiography Report (TTE) Demographics Patient Name GARAY, Date of S tudy 02/02/2020 KENNA Gender Female Visit Number [id number] Race Room Numb er 2238 Number Date of 1950 Referring Physician Sandhya Israel MD 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 Clinical History HGB 11.7 HCT 36.8 % HTN, HLD, CVA Contrast Medium: Bubble Study. Height: 62 inches Weight: 65.77 kg (145 lbs) BSA: 1.67 m^2 BMI: 26.52 kg/m^2 HR: 88 bpm BP: 169/74 mmHg Summary IV saline contrast injection was negati ve for a PFO (patent foramen ovale) at rest and post Valsalva . The left ventricle is chamber size (by vol index) is normal (female - LVED vol - 29-61ml/m2). All of the LV segmen ts contract normally . LVEF by Chavez's method of disk assessment is normal (>60%) . Grade 1 diastolic dysfunction (impaired relaxation and low-normal LA pressure). Estimated peak systolic PA pressure is 35-40 mmHg . Signature Findings Technical Quality: Technically adequate exam. Left Ventricle The left ventric le is chamber size (by vol index) is normal (femal e - LVED vol - 29-61ml/m2). Normal LV wall thicknes s. All of the LV segments contract normally . LVEF by Chavez's method of disk assessment is no rmal (>60%) . Grade 1 diastolic dysfunction (imp aired relaxation and low-normal LA pressure). Left Atrium LA size is ondina l (16-34 ml/m2) . Right Ventricle The right ventri cular chamber size and systolic function are wit hin normal limits. Right Atrium RA size is ondina l. Atrial Septum IV saline contra st injection was negative for a PFO (patent foramen ovale) at rest and post Valsalva . Aortic Valve Mild AoV cusp th ickening. There is trace a ortic regurgitation. Mitral Valve Mild MV leaflet thickening. Tricuspid Valve TV structure is normal. Mild tricuspid r egurgitation. Estimated peak s ystolic PA pressure is 35-40 mmHg . Pulmonic Valve Normal PV struct ure appears normal by available views. A trace of pulmo nary regurgitation. Aorta Aortic root size (SInus of Valsalva diameter) is normal . Pericardium No pericardial e ffusion is visualized. IVC/SVC/PA/PV/Pleural Pulmonary vein f low is normal . The estimated RA pressure by IVC dynamics 0-5mmHg . Chambers/Structures Left Atrium LA Dimension: 3.61 cm LA Area: 17.37 cm^2 LA Volume: 44.18 ml LA Vol. Index: 26 ml/m^2 Left Ventricle LVIDd: 4.55 cm LVIDs: 3.49 cm LV Septum Diastolic: 1.12 cm LV PW Diastolic: 0.96 cm LV FS: 23.3 % LVEDV Chavez's:43.63 ml LVESV Chavez's:15.48 ml LVEDVI: 26 ml/m^2 LVEF Chavez's: 64.5 % LVESVI: 9 ml/m^2 LVOT Diameter: 1.82 cm Aorta Ao Root S of Zaina.: 3.1 cm Doppler/Quantitative Measurements LVOT Peak Velocity: 1 m/s Pea k Gradient: 4.03 mmHg Mean Velocity: 0.61 m/s Nancy n Gradient: 1.82 mmHg LVOT Diameter: 1.82 cm LVO T VTI: 19.8 cm LVOT Area: 2.6 cm^2 LVO T SV:51.48 ml LVOT CO: 4.53 l/min LVO T CI: 2.71 l/min/m^2 Performing Organization Address City/[facility]/Zipcode Phone Number [facility] TSH/Free T4 If Indicated (02/01/2020 7:06 PM CDT) Pathologist Sig critical access hospital TSH 1.376 0.350 - 4.940 uIU/mL [facility] Specimen Blood Narrative Performed At Math Teacher ID - NTP [facility] Performing Organization Address City/[facility]/Zipcode Phone Number [address] [address] CENTER CBC with platelet count + automated diff (02/01/2020 7:06 PM CDT) Pathologist Sig critical access hospital WBC 8.2 3.5 - 10.5 [facility] K/L [facility] RBC 4.03 3.93 - 5.22 [facility] M/L [facility] Hemoglobin 11.7 11.2 - 15.7 [facility] GM/DL [facility] Hematocrit 36.8 34.1 - 44.9 % [facility] MCV 91.3 79.4 - 94.8 fL [facility] MCH 29.0 25.6 - 32.2 pg [facility] MCHC 31.8 (L) 32.2 - 35.5 [facility] GM/DL [facility] RDW 13.2 11.7 - 14.4 % [facility] Platelets 269 150 - 450 K/CU [facility] MPV 10.2 9.4 - 12.3 fL [facility] nRBC 0 0 - 0 /100 WBC [facility] % Neutros 73 % [facility] % Lymphs 20 % [facility] % Monos 6 % [facility] % Eos 0 % [facility] % Baso 1 % [facility] # Neutros 6.03 1.56 - 6.13 [facility] # Lymphs 1.63 1.18 - 3.74 [facility] # Monos 0.46 (H) 0.24 - 0.36 [facility] [facility] # Eos 0.03 (L) 0.04 - 0.36 [facility] # Baso 0.06 0.01 - 0.08 [facility] Immature 0 0 - 1 % [facility] Granulocytes-Relative [facility] Specimen Blood Performing Organization Address City/[facility]/Zipcode Phone Number [address] [address] CENTER Phosphorus (02/01/2020 7:06 PM CDT) Pathologist Sig nature Phosphorus 2.5Comment: 2.3 - 4.7 mg/dL [facility] Specimen slightly [facility] MED[facility] hemolyzed CENTER Specimen Blood Narrative Performed At Math Teacher ID - NTP [facility] Performing Organization Address City/[facility]/Zipcode Phone Number [address] [address] CENTER Magnesium (02/01/2020 7:06 PM CDT) Pathologist Sig nature Magnesium 1.6Comment: Specimen 1.6 - 2.6 mg/dL [facility] Specimen Blood Narrative Performed At Math Teacher ID - NTP [facility] Performing Organization Address City/[facility] Phone Number [address] [address] [place] Hemoglobin A1c (02/01/2020 7:06 PM CDT) Pathologist Sig nature Hemoglobin A1C 5.9 4.3 - 6.1 % [facility] Specimen Blood Performing Organization Address City/[facility] Phone Number [address] [address] [place] Folate, Serum (02/01/2020 7:06 PM CDT) Pathologist Sig nature Folate 11.40 >=7.00 ng/mL [facility] Specimen Blood Narrative Performed At Math Teacher ID - NTP [facility] Performing Organization Address [facility] Centercomi Phone Number [address] [address] [place] Vitamin B12 (02/01/2020 7:06 PM CDT) Pathologist Sig nature Vitamin B12 329 213 - 816 pg/mL [facility] Specimen Blood Narrative Performed At Math Teacher ID - [facility] Performing Organization Address [facility] Phone Number [address] [address] [place] Lipid panel (02/01/2020 7:06 PM CDT) Pathologist Sig nature Triglycerides 98Comment: Specimen mg/dL [facility] Cholesterol 150Comment: Specimen mg/dL [facility] HDL 59 mg/dL [facility] LDL Calculated 71 mg/dL [facility] Specimen Blood Narrative Performed At Triglyceride Reference Range: [facility] Low Risk <150 Borderline 150-199 High Risk 200-499 Very High Risk >=500 Cholesterol Reference Range: Low Risk <200 Borderline 200-239 High Risk >240 HDL Cholesterol Reference Range: Low Risk >=60 High Risk <40 LDL Cholesterol Reference Range: Optimal <100 Near Optimal 100-129 Borderline 130-159 High 160-189 Very High >=190 Math Teacher ID - NTP Performing Organization Address City/State/Zipcode Phone Number [facility] [address] [place] [address] CENTER after 04/13/2019 Insurance Payer Benefit Plan / Subscriber ID Effective Phone Address T ype Group Dates HUMANA - HUMANA [id number] 2018-[employer] Contracted MEDICARE MGD MEDICARE ADV nt CARE
--- OUTSIDE RECORDS SUMMARY | 2020-04-13 16:53 | XMS REPORT | Continuity of Care Document ---
:1950 Author Organization [facility] t Address [address] [place] [address] Care Team Providers Name Role Phone Alanis Aguiar MD Attending Clinician Jhonatan WHITING Attending Clinician ALANIS AGUIAR Attending Clinician Unavailable JHONATAN Admitting Clinician Unavailable Payers Payer Name Policy Type Policy Effective Date Expiration Date Sour ce Number HUMANA - MEDICARE [id number] 2018 [facility] CAREHUMANA 00:00:00 - Medical MEDICARE Center [id number]/[id number] 019-PresentMaps Contracted Problems Condition Condition Condition Status Onset Resolution Last Treating Co mments Source Name Details Category Date Date Treatment Clinician Date Dizziness Dizziness Disease Active [facility] Allergies, Adverse Reactions, Alerts Allergy Allergy Status Severity Reaction(s) Onset Inactive Treating Comm ents Source Name Type Date Date Clinician Butorpha Propensi Active [facility] - Tartrate adverse 00:00: Medical reaction 00 Center s Social History Social Habit Start Date Stop Date Quantity Comments Source Sex Assigned At [facility] History of tobacco 1988-02-02 1989-02-01 [facility] sm[facility] Smoking Status Start Date Stop Date Source Former smoker 2020-02-02 00:00:00 2020-02-02 00:00:[address] [facility] Medications Ordered Filled Start Stop Current Ordering Indication Dosage Frequency Signature Comments Components Source Medication Medication Date Date Medication? Clinician (SIG) Name Name amLODIPine 2020- Yes 10mg QD Take [address] [facility] [address] (NORVASC) 02-04- tablet (10 [facility] - 10 MG 00:00: 23:59 mg total) Medica l tablet 00 :00 by mouth Center daily. clopidogreL 2020- Yes 75mg QD Take [address] [facility] (PLAVIX) 75 02-04- tablet (75 L [facility]kes - mg tablet 00:00: 23:59 mg total) Me dical 00 :00 by mouth Center daily. lisinopriL 2020- Yes 20mg QD Take [address] [facility] (PRINIVIL,Z 02-04- tablet (20 L ukes - ESTRIL) 20 00:00: 23:59 mg total) M edical MG tablet 00 :00 by mouth Center daily. levothyroxi 2020- Yes 100ug Take [address] [facility] 02-04 tablet [facility] - (SYNTHROID, 00:00: 23:59 (100 mcg M edical LEVOTHROID) 00 :00 total) by [address] ter 100 MCG mouth tablet Every morning on an empty stomach. timolol 2020- Yes 1[drp] Q.5D Place [address] [facility] (TIMOPTIC) 02-03 drop into Robert [facility] - 0.5 % 00:00: 23:59 both eyes Medica l ophthalmic 00 :00 2 (two) Center solution times daily. cloNIDine 2020- Yes .1mg Q.5D Take 1 [facility] HCL [facility] - (CATAPRES) 00:00: 23:59 (0.1 mg Med ical 0.1 MG 00 :00 total) by Center tablet mouth 2 (two) times daily. atorvastati 2020- Yes 80mg QD Take [address] [facility] (LIPITOR) 02-03- tablets Luke s - 10 MG 00:00: 23:59 (80 mg Medical tablet 00 :00 total) by Center mouth nightly. acetaminoph 2020- Yes 650mg Take [address] en 02-03- tablets [facility] - (TYLENOL) 00:00: 23:59 (650 mg Medi nannette 325 MG 00 :00 total) by Center tablet mouth every 6 (six) hours as needed for up to 360 days. meclizine 2019- No 25mg Take 1 [facility] (ANTIVERT) 02-03 tablet (25 Maureen kes - 25 mg 00:00: 23:59 mg total) Medica l tablet 00 :00 by mouth 3 Center (three) times daily as needed for Dizziness for up to 10 days. metoclopram 2019- No 10mg Take [address] [facility] [address] campos 02-03 tablet (10 [facility] - (REGLAN) 10 00:00: 23:59 mg total) Medical MG tablet 00 :00 by mouth 3 Cent er (three) times daily before meals for 10 days. mINOCYCLine 2019- No 100mg Take [address] (MINOCIN,DY 02-03 capsule Luke s - NACIN) 100 00:00: 23:59 (100 mg Med ical MG capsule 00 :00 total) by Cent er mouth every 12 (twelve) hours for 5 days. atorvastati 2019- No 10mg QD Take [address] n (LIPITOR) 02-03 tablet (10 L ukes - 10 MG 00:00: 00:00 mg total) Medica l tablet 00 :00 by mouth Center nightly. Vital Signs Vital Name Observation Time Observation Value Comments Source Systolic blood 2020-02-04 15:03:00 185 mm[Hg] [facility] Diastolic blood 2020-02-04 15:03:00 86 mm[Hg] [facility] S [facility] Heart rate 2020-02-04 15:03:00 80 /min [facility] Respiratory rate 2020-02-04 15:03:00 16 /min [facility] Body temperature 2020-02-04 11:00:00 36.33 [place] [facility] Oxygen saturation in 2020-02-04 11:00:00 97 /min [facility] Arterial blood by Medical Ce nter Pulse oximetry Body height 2020-02-01 16:56:00 157.5 cm [facility] Body weight 2020-02-01 16:56:00 65.772 kg [facility] BMI 2020-02-01 16:56:00 26.52 kg/m2 [facility] Procedures Procedure Date / Time Performed Performing Clinician [facility] e RHYTHM STRIP - SCAN 2020-02-05 13:40:02 ProviderPhi [facility] ECG 12-LEAD 2020-02-03 16:51:23 Unknown, Hl7 Doctor [facility] MRA HEAD WITH & WITHOUT 2020-02-03 09:44:00 Balta Owusu Formerly [facility], 1928–1983 CONTRAST [facility] BASIC METABOLIC PANEL 2020-02-03 05:31:00 Sandhya Israel [facility] Neel wang [facility] () [facility] 2D ECHO W/ DOPPLER 2020-02-02 15:08:00 [facility] (CW/PW/COLOR) [facility] BASIC METABOLIC PANEL 2020-02-01 19:06:00 [facility] () [facility] MAGNESIUM 2020-02-01 19:06:00 [facility] PHOSPHORUS 2020-02-01 19:06:00 [facility] HEMOGLOBIN A1C 2020-02-01 19:06:00 [facility] LIPID PANEL 2020-02-01 19:06:00 [facility] TSH/FREE T4 IF INDICATED 2020-02-01 19:06:00 [facility] VITAMIN B12 2020-02-01 19:06:00 [facility] FOLATE, SERUM 2020-02-01 19:06:00 [facility] CBC W/PLT COUNT & AUTO 2020-02-01 19:06:00 [place] [facility] Plan of Care Planned Activity Planned Date Details Comments Source Future Scheduled 2020-02-17 INFLUENZA VACCINE (#1) [facility] 00:00:00 [code = INFLUENZA Medical Ce nter VACCINE (#1)] Future Scheduled 2019-06-[address] [facility] [facility] - Test 00:00:00 WELLNESS (YEAR 2 or Medical Center FIRST YEAR if no IPPE) [code = MEDICARE ANNUAL WELLNESS (YEAR 2 or FIRST YEAR if no IPPE)] Future Scheduled 2013 PNEUMOCOCCAL 65+ YRS [facility] - Test 00:00:00 (1 of 1 - Medical Center [id number] PCV13) [code = PNEUMOCOCCAL 65+ YRS (1 of 1 - [id number] PCV13)] Future Scheduled [address] - Test 00:00:00 malignant neoplasm of [facility] breast (procedure) [code = 565335061] Future Scheduled [address] [facility] - Test 00:00:00 malignant neoplasm of [facility] colon (procedure) [code = 041699834] Results Test Test Test Comments Results Result Source Description Time Comments ECG 12 lead 2020-01- Interface, External Ris [facility] In - 02/03/2020 6:51 [facility] - 18:51:26 PM CDTVentricular Rate Me dical 77 BPMAtrial Rate 77 Cent er BPMP-R Interval 144 msQRS Duration 82 msQ-T Interval 394 msQTC Calculation(Bazett) 445 msP Terrell 66 degreesR Terrell -12 degreesT Terrell [address] abnormalityAbnormal ECGNo previous ECGs availableConfirmed by MD MIRIAM, EDGARDO ([id number]) on 02/03/2020 6:51:21 PM MR, BRAIN, WITH 2020-01- Unlisted Reason FINAL REPORT PATIENT 18 for Exam - Click ID: [id number] MR, 10:00:00 Yes and Enter BRAIN, WITH \T\ WITHOUT Reason Below->No CONTRAST, MR, MRA, BRAIN, WITH \T\ WITHOUT CONTRAST INDICATION: Dizziness, non-specific TECHNIQUE: Pre and post contrast, multiplanar, multisequence MR images of the brain. 3-D time of flight and postcontrast MRA of the intracranial circulation. 3D MIP angiographic post-processing was performed. COMPARISON: None FINDINGS:MRI BRAIN WITHOUT AND WITH CONTRAST:Acute to early subacute infarction involving the left cerebellar hemisphere without susceptibility artifact to suggest hemorrhagic conversion. Associated edema without mass effect or ventricular effacement. Supratentorial brain demonstrates age-appropriate morphology and volume without additional ischemic focus. Scattered, relatively mild white matter changes suggest leukoaraiosis. There is no midline shift or supratentorial ventricular dilation. Lacunar infarct versus neuroglial cyst affects the left basal ganglia. No layering fluid is present in the paranasal sinuses. Orbital contents are unremarkable. Following intravenous contrast administration, there is no abnormal parenchymal, ependymal, or leptomeningeal enhancement. MRA Head:The major [place] branches are patent. Internal carotid arteries demonstrate robust flow related signal and postcontrast enhancement. Within the posterior circulation, the vertebral arteries are codominant. However, there is no flow related signal or visible postcontrast enhancement associated with the left posterior inferior cerebellar artery beyond the origin. 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 Signed: JR Duarte Robert MDReport Verified Date/Time: 02/03/2020 10:00:04 Reading Location: [address] Neuro Reading Room , MRA, BRAIN, 2020-01- Unlisted Reason FINAL REPORT PATIENT WITH 18 for Exam - Click ID: [id number] MR, 10:00:00 Yes and Enter BRAIN, WITH \T\ WITHOUT Reason CONTRAST, MR, MRA, Below->Yesr/o BRAIN, WITH \T\ WITHOUT strokeUnlisted CONTRAST INDICATION: Reason for Dizziness, non-specific Exam->r/o stroke TECHNIQUE: Pre and post contrast, multiplanar, multisequence MR images of the brain. 3-D time of flight and postcontrast MRA of the intracranial circulation. 3D MIP angiographic post-processing was performed. COMPARISON: None FINDINGS:MRI BRAIN WITHOUT AND WITH CONTRAST:Acute to early subacute infarction involving the left cerebellar hemisphere without susceptibility artifact to suggest hemorrhagic conversion. Associated edema without mass effect or ventricular effacement. Supratentorial brain demonstrates age-appropriate morphology and volume without additional ischemic focus. Scattered, relatively mild white matter changes suggest leukoaraiosis. There is no midline shift or supratentorial ventricular dilation. Lacunar infarct versus neuroglial cyst affects the left basal ganglia. No layering fluid is present in the paranasal sinuses. Orbital contents are unremarkable. Following intravenous contrast administration, there is no abnormal parenchymal, ependymal, or leptomeningeal enhancement. MRA Head:The major [place] branches are patent. Internal carotid arteries demonstrate robust flow related signal and postcontrast enhancement. Within the posterior circulation, the vertebral arteries are codominant. However, there is no flow related signal or visible postcontrast enhancement associated with the left posterior inferior cerebellar artery beyond the origin. 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 Signed: JR Duarte Robert MDReport Verified Date/Time: 02/03/2020 10:00:04 Reading Location: [address] Neuro Reading Room head with 2020-01- Interface, External Ris [facility] and without 18 In - 02/03/2020 10:03 Maureen kes - contrast 10:00:00 AM CDTFINAL REPORT Medica l Ce nter MR, BRAIN, WITH \T\ WITHOUT CONTRAST, MR, MRA, BRAIN, WITH \T\ WITHOUT CONTRAST INDICATION: Dizziness, non-specific TECHNIQUE: Pre and post contrast, multiplanar, multisequence MR images of the brain. 3-D time of flight and postcontrast MRA of the intracranial circulation. 3D MIP angiographic post-processing was performed. COMPARISON: None FINDINGS:MRI BRAIN WITHOUT AND WITH CONTRAST:Acute to early subacute infarction involving the left cerebellar hemisphere without susceptibility artifact to suggest hemorrhagic conversion. Associated edema without mass effect or ventricular effacement. Supratentorial brain demonstrates age-appropriate morphology and volume without additional ischemic focus. Scattered, relatively mild white matter changes suggest leukoaraiosis. There is no midline shift or supratentorial ventricular dilation. Lacunar infarct versus neuroglial cyst affects the left basal ganglia. No layering fluid is present in the paranasal sinuses. Orbital contents are unremarkable. Following intravenous contrast administration, there is no abnormal parenchymal, ependymal, or leptomeningeal enhancement. MRA Head:The major [place] branches are patent. Internal carotid arteries demonstrate robust flow related signal and postcontrast enhancement. Within the posterior circulation, the vertebral arteries are codominant. However, there is no flow related signal or visible postcontrast enhancement associated with the left posterior inferior cerebellar artery beyond the origin. 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 Signed: JR Duarte Robert MDReport Verified Date/Time: 02/03/2020 10:00:04 Reading Location: [address] Neuro Reading Room brain 2020-01- Interface, External Ris [facility] without & with 18 In - 02/03/2020 10:03 [facility] - IV contrast 10:00:00 AM CDTFINAL REPORT Medic al Ce nter MR, BRAIN, WITH \T\ WITHOUT CONTRAST, MR, MRA, BRAIN, WITH \T\ WITHOUT CONTRAST INDICATION: Dizziness, non-specific TECHNIQUE: Pre and post contrast, multiplanar, multisequence MR images of the brain. 3-D time of flight and postcontrast MRA of the intracranial circulation. 3D MIP angiographic post-processing was performed. COMPARISON: None FINDINGS:MRI BRAIN WITHOUT AND WITH CONTRAST:Acute to early subacute infarction involving the left cerebellar hemisphere without susceptibility artifact to suggest hemorrhagic conversion. Associated edema without mass effect or ventricular effacement. Supratentorial brain demonstrates age-appropriate morphology and volume without additional ischemic focus. Scattered, relatively mild white matter changes suggest leukoaraiosis. There is no midline shift or supratentorial ventricular dilation. Lacunar infarct versus neuroglial cyst affects the left basal ganglia. No layering fluid is present in the paranasal sinuses. Orbital contents are unremarkable. Following intravenous contrast administration, there is no abnormal parenchymal, ependymal, or leptomeningeal enhancement. MRA Head:The major [place] branches are patent. Internal carotid arteries demonstrate robust flow related signal and postcontrast enhancement. Within the posterior circulation, the vertebral arteries are codominant. However, there is no flow related signal or visible postcontrast enhancement associated with the left posterior inferior cerebellar artery beyond the origin. 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 Signed: JR Duarte Robert MDReport Verified Date/Time: 02/03/2020 10:00:04 Reading Location: [address] Neuro Reading Room Basic Metabolic Panel 2020-02-03 06:42:00 Test Item Value Reference Range Interpretation Comme nts Sodium (test code = 137 meq/L 158-318 1977-2) Potassium (test code = 3.9 meq/L 3.5-5.1 2823-3) Chloride (test code = 102 meq/L 98-107 2075-0) CO2 (test code = 25 meq/L 22-29 2028-9) BUN (test code = 8 mg/dL 7-21 3094-0) Creatinine (test code = 0.73 mg/dL 0.57-1.25 2160-0) Glucose (test code = 80 mg/dL 70-105 2345-7) Calcium (test code = 8.5 mg/dL 8.4-10.2 10791-5) EGFR (test code = 79 mL/min/1.73 sq [place] [address]-7) ACCURATE CRE ATININE CLEARANCE IN NE EDICTING GLOMERULAR FILT RATION RATE. ESTIMATED GFR IS NOT APPLICABLE FOR DIALYSIS PATIEN TS. YURIY (test code = YURIY) Instant Potato Processor ID - JEMAL SALCIDO [facility] METABOLIC [id number] 06:42:00 Test Item Value Reference Range Interpretation Comments SODIUM (BEAKER) 137 meq/L 136-145 (test code = 381) POTASSIUM (BEAKER) 3.9 meq/L 3.5-5.1 (test code = 379) CHLORIDE (BEAKER) 102 meq/L 98-107 (test code = 382) CO2 (BEAKER) (test 25 meq/L 22-29 code = 355) BLOOD UREA NITROGEN 8 mg/dL 7-21 (BEAKER) (test code = 354) CREATININE (BEAKER) 0.73 mg/dL 0.57-1.25 (test code = 358) GLUCOSE RANDOM 80 mg/dL 70-105 (BEAKER) (test code = 652) CALCIUM (BEAKER) 8.5 mg/dL 8.4-10.2 (test code = 697) EGFR (BEAKER) (test 79 mL/min/1.73 ESTIMA RAMÍREZ GFR IS code = 1092) sq m NOT ACCURATE CREATININE CLEARANCE IN PREDICTING GLOMERULAR FILTRATION RATE . ESTIMATED GFR I S NOT APPLICABLE FOR DIALYSIS PATIEN TS. Instant Potato Processor ID - [id number] Echo W/Doppler(CW/PW/Color)2020-02-02 17:31:53Ejection FractionSLEH ECHO HEARTLAB DONTAE CPACSInterface, External Ris In - 02/02/2020 5:32 PM CDTTransthoracic Echocardiography Report (TTE) Demographics Patient Name LOPEZ, Date of Study 02/02/2020 JELANI Gender Female Visit Number [id number] Race Room Number 2238 Number Date of 1950 Referring Physician Sandhya Israel MD Age 69 year(s) Consulting Networking Engineer Concepcion Person [facility] Interpreting Shahab Pickard MD Physician Procedure Type of Study TTE procedure:2DECHO W DOPPLER(CW/ PW/COLOR) (Routine) Indications:Suspected cardiac source of emboli.Clinical HistoryHGB 11.7HCT 36.8 %HTN, HLD, CVAContrast Medium: Bubble Study.Height: 62 inches Weight: 65.77 kg (145 lbs) BSA: 1.67 m^2 BMI: 26.52 kg/m^2HR: 88 bpm BP: 169/74 mmHg Summary IV saline contrast injection was negative for aPFO (patent foramen ovale) at rest and post Valsalva . The left ventricle is chamber size (by vol index) is normal (female - LVED vol - 29-61ml/m2). All of the LV segments contract normally . LVEF by Chavez's method of disk assessment is normal (>60%) . Grade 1 diastolic dysfunction (impaired relaxation and low- normal LA pressure). Estimated peak systolic PA pressure is 35-40 mmHg . Signature Findings Technical Quality: Technically adequate exam. Left Ventricle The left ventricle is chamber size (by vol index) is normal (female - LVED vol- 29-61ml/m2). Normal LV wall thickness. All of the LV segments contract normally . LVEF by Chavez's method of disk assessment is normal (>60%) . Grade 1 diastolic dysfunction (impaired relaxation and low-normal LA pressure). Left Atrium LA size is normal (16-34 ml/m2) .Right Ventricle The right ventricular chamber size and systolic function are within normal limits. Right Atrium RA size is normal. Atrial Septum IV saline contrast injection was negative for a PFO (patent foramen ovale) at rest and post Valsalva . Aortic Valve Mild AoV cusp thickening. There istrace aortic regurgitation. Mitral Valve Mild MV leaflet thickening. Tricuspid Valve TV structure is normal. Mild tricuspid regurgitation. Estimated peak systolic PA pressure is 35-40 mmHg . Pulmonic Valve Normal PV structure appears normal by available views. A trace of pulmonary regurgitation. Aorta Aortic root size (SInus of Valsalva diameter) is normal . Pericardium No pericardial effusion is visualized. IVC/SVC/PA/PV/Pleural Pulmonary vein flow is normal . The estimated RA pressure by IVC dynamics 0-5mmHg . Chambers/Structures Left Atrium LA Dimension: 3.61 cm LA Area: 17.37 cm^2LA Volume: 44.18 ml LA Vol. Index: 26 [...] LVOT CO: 4.53 l/min LVOT CI: 2.71 l/min/m^2[facility] Vitamin [id number] 20:50:00 Test Item Value Reference Range Interpretation Comments Vitamin B12 (test code = 329 pg/mL 101-732 2587-9) YURIY (test code = YURIY) Instant Potato Processor ID - NTP Lab Interpretation (test Normal code = 44979-3) [facility] HospitalF[facility], [id number] 20:50:00 Test Item Value Reference Range Interpretation Comments Folate (test code = 2284-8) 11.40 ng/mL >=7.00 YURIY (test code = YURIY) Instant Potato Processor ID - NTP Lab Interpretation (test Normal code = 82375-9) [facility] HospitalTSH/Free T4 If [id number] 20:50:00 Test Item Value Reference Range Interpretation Comments TSH (test code = 1.376 0.350- 4.940 uIU/mL 62324-0) YURIY (test code = YURIY) Instant Potato Processor ID - NTP Lab Interpretation (test Normal code = 21665-9) [facility] HospitalVITAMIN [id number] 20:50:00 Test Item Value Reference Range Interpretation Comments VITAMIN B12 (BEAKER) (test code = 329 pg/mL 213-816 774) Instant Potato Processor ID - NTPFOLATE, [id number] 20:50:00 Test Item Value Reference Range Interpretation Comments FOLATE (BEAKER) (test code = 362) 11.40 ng/mL >=7.00 Instant Potato Processor ID - NTPTSH/FREE T4 IF [id number] 20:50:00 Test Item Value Reference Range Interpretation Comments THYROID STIMULATING HORMONE 1.376 uIU/mL 0.350-4.940 (BEAKER) (test code = 772) Instant Potato Processor ID - NTPHemoglobin [id number] 20:22:00 Test Item Value Reference Range Interpretation Comments Hemoglobin A1C (test code = 4548-4) 5.9 % 4.3-6.1 Lab Interpretation (test code = Normal 19710-6) [facility] HospitalHEMOGLOBIN [id number] 20:22:00 Test Item Value Reference Range Interpretation Comments HEMOGLOBIN A1C (BEAKER) (test code = 5.9 % 4.3-6.1 368) BASIC METABOLIC [id number] 20:18:00 Test Item Value Reference Range Interpretation Comments SODIUM (BEAKER) 140 meq/L 136-145 (test code = 381) POTASSIUM (BEAKER) 4.1 meq/L 3.5-5.1 Specimen slightly (test code = 379) hemolyzed CHLORIDE (BEAKER) 106 meq/L 98-107 (test code = 382) CO2 (BEAKER) (test 26 meq/L 22-29 code = 355) BLOOD UREA NITROGEN 15 mg/dL 7-21 (BEAKER) (test code = 354) CREATININE (BEAKER) 0.73 mg/dL 0.57-1.25 Specimen slightly (test code = 358) hemolyzed GLUCOSE RANDOM 94 mg/dL 70-105 (BEAKER) (test code = 652) CALCIUM (BEAKER) 7.3 mg/dL 8.4-10.2 L (test code = 697) EGFR (BEAKER) (test 79 mL/min/1.73 ESTIMA RAMÍREZ GFR IS code = 1092) sq m NOT ACCURATE CREATININE CLEARANCE IN PREDICTING GLOMERULAR FILTRATION RATE . ESTIMATED GFR I S NOT APPLICABLE FOR DIALYSIS PATIEN TS. Instant Potato Processor ID - NTPLipid [id number] 20:14:00 Test Item Value Reference Range Interpretation Comments Triglycerides (test 98 mg/dL Specimen code = 2571-8) slightly hemolyzed Cholesterol (test 150 mg/dL Specimen code = 2093-3) slightly hemolyzed HDL (test code = 59 mg/dL 5-9) LDL Calculated (test 71 mg/dL code = 00598-5) YURIY (test code = Triglyceride YURIY) Reference Range: Low Risk <150 Borderline 150-199 High Risk 200-499 Very High Risk >=500 Cholesterol Reference Range: Low Risk <200 Borderline 200-239 High Risk >240 HDL Cholesterol Reference Range: Low Risk >=60 High Risk <40 LDL Cholesterol Reference Range: Optimal <100 Near Optimal 100-129 Borderline 130-159 High 160-189 Very High >=190 Instant Potato Processor ID - NTP [facility] HospitalMagnesium2020-08-16 20:14:00 Test Item Value Reference Range Interpretation Comments Magnesium (test code = 1.6 mg/dL 1.6-2.6 Speci men 46589-8) slightly hemolyzed YURIY (test code = YURIY) Instant Potato Processor ID - NTP Lab Interpretation Normal (test code = 94770-9) [facility] HospitalPhosphorus2020-08-16 20:14:00 Test Item Value Reference Range Interpretation Comments Phosphorus (test code 2.5 mg/dL 2.3-4.7 Specim en = 2777-1) slightly hemolyzed YURIY (test code = YURIY) Instant Potato Processor ID - NTP Lab Interpretation Normal (test code = 19275-0) [facility] HospitalMAGNESIUM2020-08-16 20:14:00 Test Item Value Reference Range Interpretation Comments MAGNESIUM (BEAKER) 1.6 mg/dL 1.6-2.6 Specimen slightly (test code = 627) hemolyzed Instant Potato Processor ID - [id number] 20:14:00 Test Item Value Reference Range Interpretation Comments PHOSPHORUS (BEAKER) 2.5 mg/dL 2.3-4.7 Specimen slightly (test code = 604) hemolyzed [employer] ID - NTPLIPID [id number] 20:14:00 Test Item Value Reference Range Interpretation Comments TRIGLYCERIDES (BEAKER) 98 mg/dL Speci men slightly (test code = 540) hemolyzed CHOLESTEROL (BEAKER) 150 mg/dL Specime n slightly (test code = 631) hemolyzed HDL CHOLESTEROL (BEAKER) 59 mg/dL (test code = 976) LDL CHOLESTEROL 71 mg/dL CALCULATED (BEAKER) (test code = 633) Triglyceride Reference Range: Low Risk <150 Borderline 150-199 High Risk 200-499 Very High Risk >=500Cholesterol Reference Range: Low Risk <200 Borderline 200-239 High Risk >240HDL Cholesterol Reference Range: Low Risk >=60 High Risk <40LDL Cholesterol Reference Range: Optimal <100 Near Optimal 100-129 Borderline 130-159 High 160-189 Very High >=190 [employer] ID - [id number] with platelet count + automated [id number] 19:40:00 Test Item Value Reference Range Interpretation Comments WBC (test code = 6690-2) 8.2 3.5- 10.5 K/L RBC (test code = 789-8) 4.03 3.93- 5.22 M/L MCHC (test code = 786-4) 31.8 32.2- 35.5 GM/DL L Hematocrit (test code = 4544-3) 36.8 % 34.1-44.9 MCV (test code = 787-2) 91.3 fL 79.4-94.8 MCH (test code = 785-6) 29.0 pg 25.6-32.2 RDW (test code = 788-0) 13.2 % 11.7-14.4 Platelets (test code = 777-3) 269 150- 450 K/CU MM MPV (test code = 91151-7) 10.2 fL 9.4-12.3 nRBC (test code = 413) 0 0- 0 /100 WBC % Neutros (test code = 429) 73 % % Lymphs (test code = 430) 20 % % Monos (test code = 431) 6 % % Eos (test code = 432) 0 % % Baso (test code = 437) 1 % # Neutros (test code = 670) 6.03 1.56- 6.13 K/L # Lymphs (test code = 414) 1.63 1.18- 3.74 K/L # Monos (test code = 415) 0.46 0.24- 0.36 K/L H # Eos (test code = 416) 0.03 0.04- 0.36 K/L L # Baso (test code = 417) 0.06 0.01- 0.08 K/L Immature Granulocytes-Relative 0 % 0-1 (test code = 2801) Lab Interpretation (test code = Abnormal 27924-5) [facility] W/PLT COUNT & AUTO [id number] 19:40:00 Test Item Value Reference Range Interpretation Comments WHITE BLOOD CELL COUNT (BEAKER) 8.2 K/ L 3.5-10.5 (test code = 775) RED BLOOD CELL COUNT (BEAKER) 4.03 M/ L 3.93-5.22 (test code = 761) HEMOGLOBIN (BEAKER) (test code = 11.7 GM/DL 11.2-15.7 410) HEMATOCRIT (BEAKER) (test code = 36.8 % 34.1-44.9 411) MEAN CORPUSCULAR VOLUME (BEAKER) 91.3 fL 79.4-94.8 (test code = 753) MEAN CORPUSCULAR HEMOGLOBIN 29.0 pg 25.6-32.2 (BEAKER) (test code = 751) MEAN CORPUSCULAR HEMOGLOBIN CONC 31.8 GM/DL 32.2-35.5 L (BEAKER) (test code = 752) RED CELL DISTRIBUTION WIDTH 13.2 % 11.7-14.4 (BEAKER) (test code = 412) PLATELET COUNT (BEAKER) (test 269 K/CU MM 150-450 code = 756) MEAN PLATELET VOLUME (BEAKER) 10.2 fL 9.4-12.3 (test code = 754) NUCLEATED RED BLOOD CELLS 0 /100 WBC 0-0 (BEAKER) (test code = 413) NEUTROPHILS RELATIVE PERCENT 73 % (BEAKER) (test code = 429) LYMPHOCYTES RELATIVE PERCENT 20 % (BEAKER) (test code = 430) MONOCYTES RELATIVE PERCENT 6 % (BEAKER) (test code = 431) EOSINOPHILS RELATIVE PERCENT 0 % (BEAKER) (test code = 432) BASOPHILS RELATIVE PERCENT 1 % (BEAKER) (test code = 437) NEUTROPHILS ABSOLUTE COUNT 6.03 K/ L 1.56-6.13 (BEAKER) (test code = 670) LYMPHOCYTES ABSOLUTE COUNT 1.63 K/ L 1.18-3.74 (BEAKER) (test code = 414) MONOCYTES ABSOLUTE COUNT (BEAKER) 0.46 K/ L 0.24-0.36 H (test code = 415) EOSINOPHILS ABSOLUTE COUNT 0.03 K/ L 0.04-0.36 L (BEAKER) (test code = 416) BASOPHILS ABSOLUTE COUNT (BEAKER) 0.06 K/ L 0.01-0.08 (test code = 417) IMMATURE GRANULOCYTES-RELATIVE 0 % 0-1 PERCENT (BEAKER) (test code = 2391)
--- NOTE | 2020-04-13 17:25 | ER ---
Nurse's Notes [facility] Name: Kenna Garay Age: 69 yrs Sex: Female : 1950 Arrival Date: 04/13/2020 Time: 16:50 Bed 24 Private MD: Diagnosis: Superficial injury of head;Fall due to bumping against object Presentation: 04/13 16:57 Chief complaint: Patient states: Was sitting on side of tub, slid backwards and hit ca1 back of head on marble bathtub at 1321. Denies LOC. Pt on Clopidogrel. Denies pain. Denies dizziness. Coronavirus screen: Client denies travel out of the [place] in the last 14 days. At this time, the client does not indicate any symptoms associated with coronavirus-19. Ebola Screen: Patient negative for fever greater than or equal to 101.5 degrees Fahrenheit, and additional compatible Ebola Virus Disease symptoms Patient denies exposure to infectious person. Patient denies travel to an Ebola-affected area in the 21 days before illness onset. No symptoms or risks identified at this time. Mechanism of Injury: resulted from a fall, sitting on bath tub. Initial Sepsis Screen: Does the patient meet any 2 criteria? No. Patient's initial sepsis screen is negative. Does the patient have a suspected source of infection? No. Patient's initial sepsis screen is negative. Risk Assessment: Do you want to hurt yourself or someone else? Patient reports no desire to harm self or others. 16:57 Method Of Arrival: Ambulatory [facility] 16:57 Acuity: SO 2 ca1 17:05 Care prior to arrival: None. Trauma event details: Injury occurred in the [address], Injury occurred: at home. Injury occurred: April 13, 2020 Injury occurred at: 13:20. 17:48 Onset of symptoms was April 13, 2020. Triage Assessment: 17:01 General: Appears in no apparent distress. comfortable, Behavior is calm, cooperative, ca1 appropriate for age. Pain: Denies pain. Neuro: Level of Consciousness is awake, alert, obeys commands, Oriented to person, place, time, situation, Reports none. 17:07 EENT: No deficits noted. Cardiovascular: Heart tones S1 S2 present Capillary refill < 3 ca1 seconds Patient's skin is warm and dry. Respiratory: Airway is patent Respiratory effort is even, unlabored, Respiratory pattern is regular, symmetrical, Breath sounds are clear bilaterally. GI: Abdomen is round non-distended, Bowel sounds present X 4 quads. Abd is soft and non tender X 4 quads. : No signs and/or symptoms were reported regarding the genitourinary system. Derm: Skin is intact, is healthy with good turgor, Skin is pink, warm \T\ dry. Musculoskeletal: Circulation, motion, and sensation intact. Capillary refill < 3 seconds. Trauma Activation: Alert Physician: ED Physician; Name: ; Notified At: ; Arrived At: Physician: General Surgeon; Name: ; Notified At: ; Arrived At: Physician: Radiology; Name: ; Notified At: ; Arrived At: Physician: Respiratory; Name: ; Notified At: ; Arrived At: Physician: Lab; Name: ; Notified At: ; Arrived At: Historical: - Allergies: 17:01 Ephedrine Sulfate; ca1 17:01 Stadol; ca1 - Home Meds: 17:01 clopidogrel 75 mg oral tab 1 tab once daily [Active]; ca1 - PMHx: 17:01 eye problems; Hypertension; CVA; ca1 - PSHx: 17:01 Hysterectomy; ca1 - Immunization history:: Adult Immunizations up to date, Last tetanus immunization: < 5 years ago Flu vaccine is up to date. - Social history:: Smoking status: Patient/guardian denies using tobacco, the patient reports quitting approximately 30 years ago. - Immunization history: Last tetanus immunization: - up to date. - Family history:: not pertinent. Screenin:05 Abuse screen: Denies threats or abuse. Denies injuries from another. Tuberculosis ca1 screening: No symptoms or risk factors identified. 17:06 Nutritional screening: No deficits noted. Fall Risk Fall in past 12 months (25 points). ca1 Secondary diagnosis (15 points) CVA. Primary Survey: 17:05 NO uncontrolled hemorrhage observed. A: The patient is alert. Airway: patent. ca1 Breathing/Chest: Respiratory pattern: regular, Respiratory effort: spontaneous, unlabored, Chest inspection: symmetrical rise and fall of the chest. Circulation: Heart tones present. Pulses: palpable bilateral radial, brachial, femoral, popliteal, posterior tibial and and dorsalis pedis arteries.. Skin color: pink, Skin temperature: warm, dry. Disability Alert. Exposure/Environment: All clothing and personal items were removed. Forensic evidence collection is not deemed to be indicated at this time. Items placed in patient belonging bag. There is no evidence of uncontrolled external bleeding. No obvious injuries are noted at this time. A warming method has been applied: A warm blanket has been provided to the patient. Assessment: 17:06 Reassessment: See triage notes. ca1 Vital Signs: 16:57 BP 132 / 90; Pulse 75; Resp 16 S; Temp 97.2(TE); Pulse Ox 99% on R/A; Weight 69.85 kg ca1 (R); Height 5 ft. 1 in. (154.94 cm) (R); Pain 0/10; 16:57 Body Mass Index 29.10 (69.85 kg, 154.94 cm) ca1 [place] Coma Score: 16:57 Eye Response: spontaneous(4). Verbal Response: oriented(5). Motor Response: obeys ca1 commands(6). Total: 15. 17:05 Eye Response: spontaneous(4). Verbal Response: oriented(5). Motor Response: obeys ca1 commands(6). Total: 15. 17:18 Eye Response: spontaneous(4). Verbal Response: oriented(5). Motor Response: obeys kaiser commands(6). Total: 15. 17:20 Eye Response: spontaneous(4). Verbal Response: oriented(5). Motor Response: obeys kaiser commands(6). Total: 15. 17:20 Eye Response: spontaneous(4). Verbal Response: oriented(5). Motor Response: obeys kaiser commands(6). Total: 15. Trauma Score (Adult): 17:05 Eye Response: spontaneous(1); Verbal Response: oriented(1); Motor Response: obeys ca1 commands(2); Systolic BP: > 89 mm Hg(4); Respiratory Rate: 10 to 29 per min(4); Zach Score: 15; Trauma Score: 12 ED Course: 16:50 Patient arrived in ED. ds1 17:00 Triage completed. ca1 17:01 Arm band placed on right wrist. ca1 17:04 Charli Alvarenga MD is Attending Physician. kaiser 17:05 Patient has correct armband on for positive identification. Placed in gown. Bed in low ca1 position. Call light in reach. Side rails up X2. 17:05 Patient maintains SpO2 saturation greater than 95% on room air. ca1 17:06 No provider procedures requiring assistance completed. Patient did not have IV access ca1 during this emergency room visit. 17:07 Thermoregulation: warm blanket given to patient. ca1 17:16 Ramsey Dela Cruz, RN is Primary Nurse. [place] 17:16 CT Head C Spine In Process Unspecified. EDMS Administered Medications: No medications were administered Intake: 17:05 PO: 0ml; Total: 0ml. ca1 Outcome: 17:24 Discharge ordered by . kaiser 17:48 Discharged to home ambulatory, with family. iw 17:48 Condition: good 17:48 Discharge instructions given to patient, family, Instructed on discharge instructions, follow up and referral plans. Demonstrated understanding of instructions, follow-up care. 17:48 Patient left the ED. iw Signatures: Dispatcher [employer] EDMS Charli Alvraenga MD MD cha Sanford, Demi ds1 Carla Chan RN RN Ramsey Rehman RN RN [id number] Acob, Cheryl RN RN ca1 Corrections: (The following items were deleted from the chart) 17:02 16:57 Chief complaint: Patient states: Was sitting on side of tub, slid backwards and ca1 hit back of head on marble bathtub. Denies LOC. Pt on Clopidogrel. Denies pain. Denies dizziness ca1
--- NOTE | 2020-04-13 17:25 | EDPHYS ---
Physician Documentation [facility] Name: Kenna Garay Age: 69 yrs Sex: Female : 1950 Arrival Date: 04/13/2020 Time: 16:50 Bed 24 Private MD: ED Physician Charli Alvarenga HPI: 04/13 17:18 This 69 yrs old Female presents to ER via Ambulatory with complaints of Head kaiser Injury-Adult. 17:18 The patient or guardian reports injury, pain. The complaints affect the left occipital kaiser area and right occipital area. Context of injury: The problem was sustained at home. Onset: The symptoms/episode began/occurred just prior to arrival. Associated signs and symptoms: The patient has no apparent associated signs or symptoms, Loss of consciousness: This patient did not experience any loss of consciousness. Severity of symptoms: At their worst the symptoms were mild, in the emergency department the symptoms are unchanged. The patient has not experienced similar symptoms in the past. Historical: - Allergies: 17:01 Ephedrine Sulfate; ca1 17:01 Stadol; ca1 - Home Meds: 17:01 clopidogrel 75 mg oral tab 1 tab once daily [Active]; ca1 - PMHx: 17:01 eye problems; Hypertension; CVA; ca1 - PSHx: 17:01 Hysterectomy; ca1 - Immunization history:: Adult Immunizations up to date, Last tetanus immunization: < 5 years ago Flu vaccine is up to date. - Social history:: Smoking status: Patient/guardian denies using tobacco, the patient reports quitting approximately 30 years ago. - Immunization history: Last tetanus immunization: - up to date. - Family history:: not pertinent. ROS: 17:18 Constitutional: Negative for fever, chills, and weight loss, Eyes: Negative for injury, kaiser pain, redness, and discharge, ENT: Negative for injury, pain, and discharge, Neck: Negative for injury, pain, and swelling, Cardiovascular: Negative for chest pain, palpitations, and edema, Respiratory: Negative for shortness of breath, cough, wheezing, and pleuritic chest pain, Abdomen/GI: Negative for abdominal pain, nausea, vomiting, diarrhea, and constipation, Back: Negative for injury and pain, : Negative for injury, bleeding, discharge, and swelling, MS/Extremity: Negative for injury and deformity, Skin: Negative for injury, rash, and discoloration, Psych: Negative for depression, anxiety, suicide ideation, homicidal ideation, and hallucinations, Allergy/Immunology: Negative for hives, rash, and allergies, Endocrine: Negative for neck swelling, polydipsia, polyuria, polyphagia, and marked weight changes, Hematologic/Lymphatic: Negative for swollen nodes, abnormal bleeding, and unusual bruising. 17:18 Neuro: Positive for headache. Exam: 17:18 Constitutional: This is a well developed, well nourished patient who is awake, alert, kaiser and in no acute distress. Eyes: Pupils equal round and reactive to light, extra-ocular motions intact. Lids and lashes normal. Conjunctiva and sclera are non-icteric and not injected. Cornea within normal limits. Periorbital areas with no swelling, redness, or edema. ENT: Nares patent. No nasal discharge, no septal abnormalities noted. Tympanic membranes are normal and external auditory canals are clear. Oropharynx with no redness, swelling, or masses, exudates, or evidence of obstruction, uvula midline. Mucous membranes moist. Neck: Trachea midline, no thyromegaly or masses palpated, and no cervical lymphadenopathy. Supple, full range of motion without nuchal rigidity, or vertebral point tenderness. No Meningismus. Chest/axilla: Normal chest wall appearance and motion. Nontender with no deformity. No lesions are appreciated. Cardiovascular: Regular rate and rhythm with a normal S1 and S2. No gallops, murmurs, or rubs. Normal PMI, no JVD. No pulse deficits. Respiratory: Lungs have equal breath sounds bilaterally, clear to auscultation and percussion. No rales, rhonchi or wheezes noted. No increased work of breathing, no retractions or nasal flaring. Abdomen/GI: Soft, non-tender, with normal bowel sounds. No distension or tympany. No guarding or rebound. No evidence of tenderness throughout. Back: No spinal tenderness. No costovertebral tenderness. Full range of motion. Skin: Warm, dry with normal turgor. Normal color with no rashes, no lesions, and no evidence of cellulitis. MS/ Extremity: Pulses equal, no cyanosis. Neurovascular intact. Full, normal range of motion. Neuro: Awake and alert, GCS 15, oriented to person, place, time, and situation. Cranial nerves II-XII grossly intact. Motor strength 5/5 in all extremities. Sensory grossly intact. Cerebellar exam normal. Normal gait. Psych: Awake, alert, with orientation to person, place and time. Behavior, mood, and affect are within normal limits. 17:18 Head/face: Noted is contusion, swelling, that is mild, of the left occipital area and right occipital area. Vital Signs: 16:57 BP 132 / 90; Pulse 75; Resp 16 S; Temp 97.2(TE); Pulse Ox 99% on R/A; Weight 69.85 kg ca1 (R); Height 5 ft. 1 in. (154.94 cm) (R); Pain 0/10; 16:57 Body Mass Index 29.10 (69.85 kg, 154.94 cm) ca1 [place] Coma Score: 16:57 Eye Response: spontaneous(4). Verbal Response: oriented(5). Motor Response: obeys ca1 commands(6). Total: 15. 17:05 Eye Response: spontaneous(4). Verbal Response: oriented(5). Motor Response: obeys ca1 commands(6). Total: 15. 17:18 Eye Response: spontaneous(4). Verbal Response: oriented(5). Motor Response: obeys kaiser commands(6). Total: 15. 17:20 Eye Response: spontaneous(4). Verbal Response: oriented(5). Motor Response: obeys kaiser commands(6). Total: 15. 17:20 Eye Response: spontaneous(4). Verbal Response: oriented(5). Motor Response: obeys kaiser commands(6). Total: 15. Trauma Score (Adult): 17:05 Eye Response: spontaneous(1); Verbal Response: oriented(1); Motor Response: obeys ca1 commands(2); Systolic BP: > 89 mm Hg(4); Respiratory Rate: 10 to 29 per min(4); Zach Score: 15; Trauma Score: 12 MDM: 17:04 Patient medically screened. kaiser 17:20 Differential diagnosis: Contusion of Hematoma on Intracranial bleed- Concussion kaiser cerebral contusion. Data reviewed: vital signs, nurses notes, radiologic studies, CT scan. Data interpreted: pole inspector: not applicable for this patient encounter. rate is 75 beats/min, rhythm is regular, Pulse oximetry: on room air is 99 %. Test interpretation: by ED physician or midlevel provider:. Counseling: I had a detailed discussion with the patient and/or guardian regarding: the historical points, exam findings, and any diagnostic results supporting the discharge/admit diagnosis, lab results, the need for outpatient follow up, for definitive care, a family practitioner. 04/13 17:04 Order name: CT Head C Spine [facility] 04/13 17:18 Order name: Ice pack; Complete Time: 17:18 [facility] Administered Medications: No medications were administered Disposition: 04/13/20 17:24 Discharged to Home. Impression: Superficial injury of head, Fall due to bumping against object. - Condition is Stable. - Discharge Instructions: Head Injury, Adult, Fall Prevention in the Home, [id number], Head Injury, Adult, [id number]. - Medication Reconciliation Form, Thank You Letter, Antibiotic Education, Prescription Opioid Use form. - Follow up: Private Physician; When: 2 - 3 days; Reason: Recheck today's complaints, Re-evaluation by your physician. - Problem is new. - Symptoms have improved. Signatures: Dispatcher [employer] EDCharli Chang MD MD cha Williams, Irene, RN RN iw Acob, Cheryl, RN RN ca1 Corrections: (The following items were deleted from the chart) 17:48 17:24 04/13/2020 17:24 Discharged to Home. Impression: Superficial injury of head; Fall iw due to bumping against object. Condition is Stable. Forms are Medication Reconciliation Form, Thank You Letter, Antibiotic Education, Prescription Opioid Use. Follow up: Private Physician; When: 2 - 3 days; Reason: Recheck today's complaints, Re-evaluation by your physician. Problem is new. Symptoms have improved. kaiser
--- NOTE | 2020-04-13 17:31 | RAD REPORT ---
EXAM DESCRIPTION: CT - [id number] - 04/13/2020 5:16 pm CLINICAL HISTORY: Trauma, head and neck injury. PAIN COMPARISON: Head Brain Wo Cont dated 02/01/2020 TECHNIQUE: Axial 5 mm thick images of the head were obtained. Axial 2 mm thick images of the cervical spine were obtained with sagittal and coronal reconstruction images generated and reviewed. All CT scans are performed using dose optimization technique as appropriate and may include automated exposure control or mA/KV adjustment according to patient size. FINDINGS: CT HEAD WITHOUT CONTRAST: No acute hemorrhage, hydrocephalus or extra-axial collection is identified.5 mm lacunar infarct is no izabella left basal ganglia, old.Diminished density in the left cerebellar hemisphere is noted, unchanged and favored to represent sequela of prior infarct or trauma. The paranasal sinuses and mastoids are clear.The calvarium is intact. CT CERVICAL SPINE WITHOUT CONTRAST: No fracture or subluxation.2 mm degenerative anterolisthesis is present of C5 on 6.No prevertebral so ft tissues swelling is identified. IMPRESSION: No acute intracranial or cervical spine findings.
[2020-04-13 17:53] VITALS: BP 132/90; TEMP 97.2; O2SAT 99
== END 2020-04-13 17:48 | disposition home or self-care (01) ==
LOC: ER 16:50
DX: S00.90XA Unspecified superficial injury of unspecified part of head, initial encounter (principal); W18.00XA Striking against unspecified object with subsequent fall, initial encounter; Y93.9 Activity, unspecified; Y92.009 Unspecified place in unspecified non-institutional (private) residence as the place of occurrence of the external cause; I10 Essential (primary) hypertension; Z86.73 Personal history of transient ischemic attack (TIA), and cerebral infarction without residual deficits; Z88.5 Allergy status to narcotic agent; Z88.8 Allergy status to other drugs, medicaments and biological substances
CPT/HCPCS: 70450; 72125; 99284; G0390